=== PATIENT | female | born 1960 | race Two or more races ===

== ENCOUNTER → 2019-12-12 11:37 | Outpatient (BNVA) | payer SELFPAY | DX: Z76.89 Persons encountering health services in other specified circumstances (principal) ==

== ENCOUNTER 2019-12-12 12:44 | Outpatient (REF) | payer OTHER, SELFPAY | END 2019-12-12 12:45 | disposition home or self-care (01) | LOC: HO.LDS 12:44 | PROVIDERS: Visit Provider Physician Assistant Medical | DX: Z20.1 Contact with and (suspected) exposure to tuberculosis (principal) | CPT/HCPCS: 36415; 86481 ==

== ENCOUNTER 2020-01-16 14:04 | Outpatient (REF) | payer OTHER, SELFPAY ==
[2020-01-16 14:49] LABS: Creatinine Urine 151.53 mg/dL; Microalbum/Creatinine Ratio Ur 7.2 ug/mg cr
== END 2020-01-16 14:05 | disposition home or self-care (01) ==
LOC: HO.LNP 14:04
PROVIDERS: Visit Provider Family Medicine
DX: E11.9 Type 2 diabetes mellitus without complications (principal)
CPT/HCPCS: 82043

== ENCOUNTER 2020-03-27 09:25 | Outpatient (REF) | payer OTHER, SELFPAY ==
[2020-03-27 10:54] LABS: Estimated Average Glucose 154 mg/dL
[2020-03-27 11:08] LABS: Alanine Aminotransferase 36 U/L (0-31); Albumin Level 4.7 g/dL (3.5-5.0); Alkaline Phosphatase 81 U/L (39-117); Anion Gap 13 (12-20); Aspartate Amino Transferase 29 U/L (5-31); Bilirubin Total 0.3 mg/dL (0.0-1.0); Blood Urea Nitrogen 15 mg/dL (9-16); Calcium 10.1 mg/dL (8.4-10.2); Carbon Dioxide 27 mmol/L (22-29); Chloride 105 mmol/L (96-108); Cholesterol 166 mg/dL; Estimated Glomerular Filt Rate 48; Glucose Random 88 mg/dL (60-115); HDL Cholesterol 47 mg/dL; LDL Cholesterol Calculated 85 mg/dl; Potassium 4.8 mmol/l (3.3-5.1); Sodium 140 mmol/L (135-145); Total Protein 7.7 g/dL (6.5-8.0); Triglycerides 171 mg/dL
[2020-03-27 11:26] LABS: Creatinine Urine 91.95 mg/dL; Microalbum/Creatinine Ratio Ur 6.5 ug/mg cr
[2020-03-28 21:52] LABS: LDL Cholesterol Direct 89 mg/dL (<100)
== END 2020-03-27 09:26 | disposition home or self-care (01) ==
LOC: HO.LAB 09:25
PROVIDERS: PCP Family Medicine; Visit Provider Internal Medicine
DX: E11.65 Type 2 diabetes mellitus with hyperglycemia (principal); Z79.4 Long term (current) use of insulin
CPT/HCPCS: 36415; 80053; 80061; 82043; 83036; 83721

== ENCOUNTER → 2020-04-08 09:08 | Outpatient (REF) | payer OTHER, SELFPAY ==
--- NOTE | 2020-04-08 09:30 | CA_ITS ---
Transthoracic Echocardiogram Patient (Last, First, Middle): Mami Cook, Gender: Female Date of : 1960 Age: 60 Procedure Date: 04/08/2020 Procedure Type: Transthoracic Echocardiogram Location: OP Height: 160.02 cm Weight: 77.11 kg BSA: 1.80 m2 Heart Rate: bpm BP: 110 / 80 mmHg Principal Solutions Architect: MIREYA Rubi MD: Mike Garcia MD Printing Table Hand: Rick Crawley MD Symptoms: AYSMMETRIC SEPTAL HYPERTROPHY I42.2 R01.1 CARDIAC MURMUR Study Quality: Fair ECG Rhythm: Sinus Conclusions: - 1. Normal LV systolic function with grade 1 diastolic dysfunction with mild asymmetric septal hypertrophy without any clear off flow obstructive physiology 2. Normal cardiac valvular Doppler 3. Normal RV systolic pressure 4. No pericardial effusion Findings Left Ventricle Normal left ventricular size, thickness, and systolic function. The visually estimated ejection fraction is between 55-60%. There is no dynamic left ventricular outflow tract obstruction. Spectral Doppler is indicative of an impaired relaxation filling pattern. E/E prime ratio is <8, consistent with normal filling pressures. Evidence suggests grade I (mild) diastolic dysfunction. There is mild septal asymmetric hypertrophy. Mid ventricular obstructive physiology cannot be entirely ruled out on this study Right Ventricle Normal right ventricular cavity size and systolic function. Atria Both atria are normal in size. Interatrial shunt cannot be excluded. Aortic Valve The aortic valve structure and function is likely normal. There is no aortic valve stenosis. There is no aortic valve regurgitation. Mitral Valve Likely normal mitral valve structure and function. There is trace mitral valve regurgitation. There is no mitral valve stenosis. Pulmonic Valve The pulmonic valve was not well visualized. Tricuspid Valve Likely normal tricuspid valve structure and function. There is trace tricuspid valve regurgitation. The right ventricular systolic pressure is normal. The right ventricular systolic pressure is 15 mmHg. There is no evidence of pulmonary hypertension. Great Vessels All visible segments of the aorta are normal in size. The pulmonary artery was not well visualized. Venous The inferior vena cava is normal in size and collapses greater than 50% with inspiration. Pericardium/Pleural There is no evidence of pericardial effusion. Measurements 2D Linear Measurements IVSd: 1.03 0.6-0.9/0.6-1.0 cm LVIDd: 3.02 3.9-5.3/4.2-5.9 cm LVIDd Index: 1.68 2.4-3.2/2.2-3.1 cm/m2 LVIDs: 2.15 2.0-3.6 cm LVPWd: 0.81 0.7-1.1 cm Ao Root: 2.90 2.1-3.5 cm LA Diam: 2.40 2.7-3.8/3.0-4.0 cm LAIDs Index: 1.33 1.5-2.3 cm/m2 LV Mass: 90.37 67-162/88-224 g LV Mass Index: 50.21 43-95/49-115 g/m2 LVOT Diam: 1.90 3.0+(-)1.3 cm 2D Systolic Function EF 4C: 51.90 >55% EF 2C: 52.80 >55% EF BiP: 53.50 >55% Mitral Valve E'Lateral: 10.00 E'Medial: 8.49 Aortic Valve AoV Pk Haroon: 1.00 AoV Mn Haroon: 0.74 AoV VTI: 0.18 AoV Pk Grad: 4.00 Aov Mn Grad: 2.00 INOCENCIA Cont.VTI: 2.34 LVOT LVOT Pk Haroon: 0.88 LVOT Mn Haroon: 0.63 LVOT VTI: 0.15 LVOT Pk Grad: 3.00 LVOT Mn Grad: 2.00 LVOT Diam: 1.90 LVOT Area: 2.84 Diastolic Function E'Medial: 8.49 E' Laterial: 10.00 Tricuspid Valve TR Pk Haroon: 1.70 TR Pk Grad: 12.00 RA Press: 3.00 RVSP: 15.00 Great Vessels Aorta Ao Root-2D: 2.90 2.0-3.7 cm Ao Asc: 3.40 2.1-3.4 cm Ao Arch: 2.40 Updated in Other Vendor System with Status of Final Rick Crawley MD electronically signed on 04/08/2020 3:26:15 PM with status of Final
== END ==
LOC: HO.CARD 09:08
PROVIDERS: PCP Family Medicine; Visit Provider Internal Medicine
DX: R01.1 Cardiac murmur, unspecified (principal); I42.2 Other hypertrophic cardiomyopathy
CPT/HCPCS: 93306

== ENCOUNTER → 2020-04-09 09:07 | Outpatient (BNVA) | payer OTHER, SELFPAY | PROVIDERS: PCP Family Medicine; Visit Provider Internal Medicine | DX: I42.2 Other hypertrophic cardiomyopathy (principal); E11.8 Type 2 diabetes mellitus with unspecified complications; E78.5 Hyperlipidemia, unspecified | CPT/HCPCS: 93005; 99212 ==

== ENCOUNTER 2020-05-27 12:32 | Outpatient (REF) | payer OTHER, SELFPAY ==
[2020-05-27 14:43] LABS: Alanine Aminotransferase 32 U/L (0-31); Albumin Level 4.7 g/dL (3.5-5.0); Alkaline Phosphatase 86 U/L (39-117); Anion Gap 10 (12-20); Aspartate Amino Transferase 22 U/L (5-31); Bilirubin Total 0.5 mg/dL (0.0-1.0); Blood Urea Nitrogen 17 mg/dL (9-16); Calcium 10.1 mg/dL (8.4-10.2); Carbon Dioxide 30 mmol/L (22-29); Chloride 104 mmol/L (96-108); Cholesterol 178 mg/dL; Estimated Glomerular Filt Rate 51; Glucose Random 172 mg/dL (60-115); HDL Cholesterol 46 mg/dL; LDL Cholesterol Calculated 95 mg/dl; Potassium 5.3 mmol/L (3.3-5.1); Sodium 139 mmol/L (135-145); Total Protein 7.6 g/dL (6.5-8.0); Triglycerides 187 mg/dL
[2020-05-27 14:44] LABS: Creatinine Urine 41.63 mg/dL; Microalbumin Urine < 5.0 mg/L
[2020-05-27 15:06] LABS: Free T4 (Free Thyroxine) 0.79 ng/dL (0.71-1.85); Vitamin D 25-OH Total 39.7 ng/mL (>30)
[2020-05-27 15:27] LABS: Estimated Average Glucose 163 mg/dL; Hemoglobin A1c % 7.3 %
[2020-05-28 11:16] LABS: LDL Cholesterol Direct 95 mg/dL (<100)
== END 2020-05-27 12:33 | disposition home or self-care (01) ==
LOC: HO.LAB 12:32
PROVIDERS: PCP Family Medicine; Visit Provider Internal Medicine
DX: E11.65 Type 2 diabetes mellitus with hyperglycemia (principal); E78.5 Hyperlipidemia, unspecified; I10 Essential (primary) hypertension; E55.9 Vitamin D deficiency, unspecified; Z79.4 Long term (current) use of insulin; Z79.899 Other long term (current) drug therapy
CPT/HCPCS: 36415; 80053; 80061; 82043; 82306; 82947; 83036; 83721; 84439; 84443; 99212

== ENCOUNTER 2020-05-28 10:20 | Outpatient (REF) | payer OTHER, SELFPAY ==
[2020-05-28 11:14] LABS: Alanine Aminotransferase 36 U/L (0-31); Albumin Level 4.7 g/dL (3.5-5.0); Alkaline Phosphatase 86 U/L (39-117); Anion Gap 14 (12-20); Aspartate Amino Transferase 28 U/L (5-31); Bilirubin Total 0.5 mg/dL (0.0-1.0); Blood Urea Nitrogen 16 mg/dL (9-16); Calcium 10.2 mg/dL (8.4-10.2); Carbon Dioxide 26 mmol/L (22-29); Chloride 104 mmol/L (96-108); Estimated Glomerular Filt Rate 46; Glucose Random 154 mg/dL (60-115); Potassium 4.8 mmol/L (3.3-5.1); Sodium 139 mmol/L (135-145); Total Protein 7.7 g/dL (6.5-8.0)
[2020-05-28 11:21] LABS: Estimated Average Glucose 163 mg/dL; Hemoglobin A1c % 7.3 %
[2020-05-28 13:45] LABS: Creatinine Urine 57.19 mg/dL
== END 2020-05-28 10:21 | disposition home or self-care (01) ==
LOC: HO.LAB 10:20
PROVIDERS: PCP Family Medicine; Visit Provider Internal Medicine
DX: E11.65 Type 2 diabetes mellitus with hyperglycemia (principal); Z79.4 Long term (current) use of insulin
CPT/HCPCS: 36415; 80053; 83036

== ENCOUNTER 2020-06-22 09:23 | Outpatient (REF) | payer OTHER, SELFPAY ==
--- NOTE | ~2020-06-22 | MM_ITS ---
EXAMINATION: MM SCREENING DIGITAL BREAST TOMOSYNTHESIS, BILATERAL CLINICAL INFORMATION: Screening. Asymptomatic. The lifetime risk of breast cancer based on the Tyrer-Cuzick Model is 5%. COMPARISON: Mammography: 09/30/2015, 06/21/2014 TECHNIQUE: Digital breast tomosynthesis is performed in both the craniocaudal and mediolateral oblique views along with computer-aided detection (CAD). Synthesized 2D images are generated from the tomosynthesis. FINDINGS: There are scattered areas of fibroglandular density (ACR BI-RADS breast composition Category b). There are no significant masses, abnormal calcifications, or other abnormalities. There are incidental bilateral scattered round and predominantly rim calcifications, greater in number on left. The axilla and skin contours are unremarkable. MM/MM tomosynthesis screening BI IMPRESSION: No mammographic evidence of malignancy. ASSESSMENT: BI-RADS 2: Benign RECOMMENDATION: Routine annual mammography screening. This patient's information was entered into a reminder system with a target due date for their next mammogram.
== END 2020-06-22 09:24 | disposition home or self-care (01) ==
LOC: HO.MAMMO 09:23
PROVIDERS: PCP Family Medicine; Visit Provider Family Medicine
DX: Z12.31 Encounter for screening mammogram for malignant neoplasm of breast (principal)
CPT/HCPCS: 77063; 77067

== ENCOUNTER → 2020-09-02 12:11 | Outpatient (BNVA) | payer OTHER, SELFPAY | PROVIDERS: PCP Family Medicine; Visit Provider Internal Medicine | DX: E11.65 Type 2 diabetes mellitus with hyperglycemia (principal); E78.5 Hyperlipidemia, unspecified; I10 Essential (primary) hypertension; E55.9 Vitamin D deficiency, unspecified; Z79.4 Long term (current) use of insulin | CPT/HCPCS: 82947; 83036; 99212 ==

== ENCOUNTER 2020-12-14 08:47 | Outpatient (REF) | payer OTHER, SELFPAY ==
[2020-12-14 09:46] LABS: Estimated Average Glucose 140 mg/dL; Hemoglobin A1c % 6.5 %
[2020-12-14 09:48] LABS: Alanine Aminotransferase 27 U/L (0-31); Albumin Level 4.3 g/dL (3.5-5.0); Alkaline Phosphatase 100 U/L (39-117); Anion Gap 10 (12-20); Aspartate Amino Transferase 21 U/L (5-31); Bilirubin Total 0.2 mg/dL (0.0-1.0); Blood Urea Nitrogen 11 mg/dL (9-16); Calcium 10.1 mg/dL (8.4-10.2); Carbon Dioxide 30 mmol/L (22-29); Chloride 105 mmol/L (96-108); Estimated Glomerular Filt Rate 57; Glucose Fasting 128 mg/dL (60-99); Potassium 4.4 mmol/L (3.3-5.1); Sodium 141 mmol/L (135-145); Total Protein 7.3 g/dL (6.5-8.0)
== END 2020-12-14 08:48 | disposition home or self-care (01) ==
LOC: HO.LAB 08:47
PROVIDERS: PCP Family Medicine; Visit Provider Family Medicine
DX: Z00.00 Encounter for general adult medical examination without abnormal findings (principal); E11.8 Type 2 diabetes mellitus with unspecified complications
CPT/HCPCS: 36415; 80053; 83036

== ENCOUNTER 2021-01-20 14:42 | Outpatient (REF) | payer OTHER, SELFPAY | END 2021-01-20 14:43 | disposition home or self-care (01) | LOC: HO.LNP 14:42 | PROVIDERS: Visit Provider Hospitalist | DX: Z20.822 Contact with and (suspected) exposure to COVID-19 (principal); J02.9 Acute pharyngitis, unspecified | CPT/HCPCS: U0003; U0005 ==

== ENCOUNTER 2021-03-18 09:46 | Outpatient (REF) | payer OTHER, SELFPAY ==
[2021-03-18 10:05] LABS: MANUAL DIFF FLAG NO
[2021-03-18 10:46] LABS: Basophils Percent Auto 0.6 % (0-2); Eosinophils Absolute Auto 0.1 X10*3/uL (0.0-0.4); Eosinophils Percent Auto 2.3 % (0-4); Hemoglobin 13.2 g/dl (12.0-16.0); Imm Gran Abs Auto 0.01 X10*3/uL (0.00-0.03); Imm Gran Pct Auto 0.2 % (0.0-0.4); Lymphocytes Absolute Auto 2.4 X10*3/uL (1.2-4.9); Lymphocytes Percent Auto 38.8 % (20-40); Mean Corpuscular HGB Conc 32.2 g/dl (31.0-35.0); Mean Corpuscular Hemoglobin 26.7 pg (27.0-33.0); Mean Platelet Volume 11.7 fL (9.4-12.3); Monocytes Absolute Auto 0.3 X10*3/uL (0.1-1.2); Monocytes Percent Auto 5.5 % (2-11); Neutrophils Absolute Auto 3.2 x10*3/uL (2.0-8.3); Neutrophils Percent Auto 52.6 % (45-73); Platelet Count 234 X10*3/uL (160-400); Red Blood Count 4.94 X10*6/uL (4.20-5.50); Red Cell Distribution Width 14.6 % (11.0-16.0); White Blood Count 6.2 X10*3/uL (4.8-10.8)
[2021-03-18 10:57] LABS: Estimated Average Glucose 148 mg/dL; Hemoglobin A1c % 6.8 %
[2021-03-18 11:15] LABS: Anion Gap 11 (12-20); Blood Urea Nitrogen 12 mg/dL (9-16); Calcium 10.2 mg/dL (8.4-10.2); Carbon Dioxide 27 mmol/L (22-29); Chloride 107 mmol/L (96-108); Estimated Glomerular Filt Rate 52; Glucose Fasting 108 mg/dL (60-99); Iron 66 mcg/dL (30-160); Percent Iron Saturation 19 % (15-50); Potassium 4.6 mmol/L (3.3-5.1); Sodium 140 mmol/L (135-145); Total Iron Binding Capacity 350 mcg/dL (228-428); Unsaturated Iron Binding 284 ug/dL
[2021-03-18 11:38] LABS: TSH reflex Free T4 2.02 uIU/mL (0.32-4.0); Vitamin D 25-OH Total 30.4 ng/mL (>30)
[2021-03-18 11:51] LABS: Folate 8.9 ng/mL (> or = 4.0); Vitamin B12 650 pg/mL (200-900)
== END 2021-03-18 09:47 | disposition home or self-care (01) ==
LOC: HO.LAB 09:46
PROVIDERS: PCP Family Medicine; Visit Provider Family Medicine
DX: Z00.00 Encounter for general adult medical examination without abnormal findings (principal); E53.8 Deficiency of other specified B group vitamins; E55.9 Vitamin D deficiency, unspecified; R53.83 Other fatigue; E11.8 Type 2 diabetes mellitus with unspecified complications
CPT/HCPCS: 36415; 80048; 82306; 82607; 82746; 83036; 83540; 84443; 85025

== ENCOUNTER 2021-10-07 07:37 | Outpatient (REF) | payer OTHER, SELFPAY ==
--- NOTE | ~2021-10-07 | MM_ITS ---
EXAMINATION: MM SCREENING DIGITAL BREAST TOMOSYNTHESIS, BILATERAL CLINICAL INFORMATION: Screening. Asymptomatic. The lifetime risk of breast cancer based on the Tyrer-Cuzick Model is 5%. COMPARISON: Mammography: 06/22/2020, 08/18/2015 TECHNIQUE: Digital breast tomosynthesis is performed in both the craniocaudal and mediolateral oblique views along with computer-aided detection (CAD). Synthesized 2D images are generated from the tomosynthesis. FINDINGS: There are scattered areas of fibroglandular density (ACR BI-RADS breast composition Category b). There are no significant masses, abnormal calcifications, or other abnormalities. Parenchymal pattern is similar to prior studies. No developing density or architectural abnormality. MM/MM tomosynthesis screening BI IMPRESSION: No mammographic evidence of malignancy. ASSESSMENT: BI-RADS 1: Negative RECOMMENDATION: Routine annual mammography screening. This patient's information was entered into a reminder system with a target due date for their next mammogram.
== END 2021-10-07 07:38 | disposition home or self-care (01) ==
LOC: HO.MAMMO 07:37
DX: Z12.31 Encounter for screening mammogram for malignant neoplasm of breast (principal)
CPT/HCPCS: 77063; 77067

== ENCOUNTER 2022-07-26 10:14 | Outpatient (REF) | payer OTHER, SELFPAY ==
[2022-07-26 10:32] LABS: MANUAL DIFF FLAG NO
[2022-07-26 11:29] LABS: Basophils Absolute Auto 0.1 X10*3/uL (0.0-0.2); Basophils Percent Auto 0.9 % (0-2); Eosinophils Absolute Auto 0.2 X10*3/uL (0.0-0.4); Eosinophils Percent Auto 2.7 % (0-4); Hematocrit 42.7 % (37.0-47.0); Hemoglobin 13.4 g/dl (12.0-16.0); Imm Gran Abs Auto 0.01 X10*3/uL (0.00-0.03); Imm Gran Pct Auto 0.1 % (0.0-0.4); Lymphocytes Percent Auto 29.3 % (20-40); Mean Corpuscular HGB Conc 31.4 g/dl (31.0-35.0); Mean Corpuscular Hemoglobin 25.9 pg (27.0-33.0); Mean Corpuscular Volume 82.4 fL (80.0-98.0); Mean Platelet Volume 11.7 fL (9.4-12.3); Monocytes Absolute Auto 0.4 X10*3/uL (0.1-1.2); Monocytes Percent Auto 6.1 % (2-11); Neutrophils Absolute Auto 4.2 x10*3/uL (2.0-8.3); Neutrophils Percent Auto 60.9 % (45-73); Platelet Count 234 X10*3/uL (160-400); Red Blood Count 5.18 X10*6/uL (4.20-5.50); Red Cell Distribution Width 15.4 % (11.0-16.0); White Blood Count 6.9 X10*3/uL (4.8-10.8)
[2022-07-26 12:20] LABS: Alanine Aminotransferase 32 U/L (0-31); Albumin Level 4.5 g/dL (3.5-5.0); Alkaline Phosphatase 90 U/L (39-117); Anion Gap 12 (12-20); Aspartate Amino Transferase 24 U/L (5-31); Bilirubin Total 0.5 mg/dL (0.0-1.0); Blood Urea Nitrogen 13 mg/dL (9-16); Calcium 10.6 mg/dL (8.4-10.2); Carbon Dioxide 27 mmol/L (22-29); Chloride 100 mmol/L (96-108); Cholesterol 240 mg/dL; Estimated Glomerular Filt Rate 41; Glucose Random 319 mg/dL (60-115); HDL Cholesterol 51 mg/dL; LDL Cholesterol Calculated 151 mg/dl; Potassium 5.3 mmol/L (3.3-5.1); Sodium 134 mmol/L (135-145); Total Protein 7.5 g/dL (6.5-8.0); Triglycerides 192 mg/dL
[2022-07-26 12:22] LABS: Creatinine Urine 94.07 mg/dL
[2022-07-26 12:28] LABS: TSH reflex Free T4 10.76 uIU/mL (0.32-4.0); Vitamin B12 772 pg/mL (200-900); Vitamin D 25-OH Total 45.1 ng/mL (>30)
[2022-07-26 14:03] LABS: Free T4 (Free Thyroxine) 0.76 ng/dL (0.71-1.85)
== END 2022-07-26 10:15 | disposition home or self-care (01) ==
LOC: HO.LAB 10:14
PROVIDERS: PCP Physician Assistant; Visit Provider Nurse Practitioner Family
DX: Z13.220 Encounter for screening for lipoid disorders (principal); Z13.29 Encounter for screening for other suspected endocrine disorder; Z13.0 Encounter for screening for diseases of the blood and blood-forming organs and certain disorders involving the immune mechanism; Z13.21 Encounter for screening for nutritional disorder; E55.9 Vitamin D deficiency, unspecified; I10 Essential (primary) hypertension
CPT/HCPCS: 36415; 80053; 80061; 82043; 82306; 82607; 82746; 84439; 84443; 85025

== ENCOUNTER → 2022-09-15 09:06 | Outpatient (BNVA) | payer OTHER, SELFPAY | PROVIDERS: PCP Physician Assistant; Visit Provider Dietitian, Registered | DX: E11.65 Type 2 diabetes mellitus with hyperglycemia (principal); Z71.3 Dietary counseling and surveillance | CPT/HCPCS: 97802 ==

== ENCOUNTER 2022-10-27 10:22 | Outpatient (AMB) | payer OTHER, SELFPAY ==
[2022-10-27 10:23] VITALS: BP 130/70; PULSE 82; O2SAT 98; BMI 28.3
--- NOTE | 2022-10-27 10:23 | MHC.PC.OV ---
Vital Signs 10/27/22 10:23 Height 5 ft 3 in Weight 160 lb BMI 28.3 BP 130/70 Blood Pressure Location Lt brachial Position Sitting Pulse 82 Pulse Source Pulse Oximeter Pulse Oximetry (%) 98 Oxygen Delivery Method Room Air Intake Visit Reasons: PE, HTN,DM 2, hypothyroidism Allergies No Known Allergies Allergy (Verified 10/27/22 10:25) Tobacco use date assessed: 07/25/22 Fall risk assessment: No Falls in past year Last assessed Fall Risk: 10/27/22 Dental Screening Dental Screen Date: 10/27/22 Did you have a dental visit in the last 12 months?: Yes Did you have a dental problem in the last 6 months where you did not have access to dental care?: No Was dental information given to patient?: Patient has dentist HPI HPI Comments History of Present Illness Details 62 year-old patient past medical history significant for hyperlipidemia, DM type 2, HTN, GERD, asymmetric septal hypertrophy, acquired hypothyroidism and Depression. Patient presents today for physical exam.Patient states currently follows with psychiatry for her anxiety and depression Dr. Granados on sertraline. Review of the notes patient was seen by diabetic oxygen tank filler back in September. THS 10. in July, levothyroxine increased to 125 mcg that, patient recommended to get previously ordered follow-up blood work completed. Hemoglobin A1c 8.2%, recommended increasing patient's semiglutide. Patient reluctant medication increase this time states she will talk to Endocrinology as she has an upcoming appointment to establish care with to see with the recommend. Patient reports left-sided lower back pain x1 year states takes [id number] Tylenol ibuprofen as well as uses [id number] Lidoderm patches as needed for pain with minimal relief. Patient denies pain radiating down left leg or numbness tingling in lower extremities. Denies any bowel or bladder issues. Mammogram: 10/07/21, scheduled for 10/31/21 Pap smear: referral entered Colonoscopy: [facility], 6 years ago. Normal Eye exam: September 2020 COUNTS INCLUDE 234 BEDS AT THE [facility] Medical History Asymmetric septal hypertrophy HLD (hyperlipidemia) HTN (hypertension) Other and unspecified hyperlipidemia T2DM (type 2 diabetes mellitus) Type 2 diabetes mellitus with unspecified complications Vitamin D deficiency Surgical History H/O shoulder surgery History of surgery on arm History of tubal ligation Family History Mother Diabetes CVD (cardiovascular disease) HTN (hypertension) Brother No problems noted. Brother No problems noted. Brother No problems noted. Sister No problems noted. Sister No problems noted. Sister No problems noted. Daughter No problems noted. Daughter No problems noted. Daughter No problems noted. Daughter No problems noted. Daughter No problems noted. Maternal Aunt Cancer Social History Housing: Apartment Patient Tobacco Use Status: Never used Tobacco e-Cigarette/Vaping Use: Never Used Second Hand Smoke Exposure: No service: No Current occupational status: employed Current occupational exposures/hazards: No Cognitive needs: No Hearing needs: No Vision needs: Yes Questionnaire PHQ-9 Over the last 2 weeks, how often have you been bothered by any of the following problems? 1. Little interest or pleasure in doing things: more than half the days 2. Feeling down, depressed, or hopeless: more than half the days 3. Trouble falling or staying asleep, or sleeping too much: nearly every day 4. Feeling tired or having little energy: more than half the days 5. Poor appetite or overeating: not at all 6. Feeling bad about yourself - or that you are a failure or have let yourself or your family down: not at all 7. Trouble concentrating on things, such as reading the newspaper or watching television: not at all 8. Moving or speaking so slowly that other people could have noticed. Or the opposite - being so fidgety or restless that you have been moving around a lot more than usual: not at all 9. Thoughts that you would be better off or of hurting yourself in some way: not at all Total score: 9 Depression Screening Interpretation: Positive Source: Developed by Drs. Pedrito Mcwilliams, Annalee Servin, Damien Shah and colleagues, with an educational hunter from [email or web address]. Thrive Questionnaire Date Thrive assessed: 03/18/22 AUDIT C Alcohol Use Questionnaire (AUDIT-C) 1. How often do you have a drink containing alcohol?: Never 3. How often do you have six or more drinks on one occasion?: Never Total Score: 0 SHIV-7 AMB Questionnaire SHIV-7 Date SHIV - 7 assessed: 03/18/22 Source: Developed by Drs. Pedrito Mcwilliams, Annalee Servin, Damien Shah and colleagues, with an educational hunter from [email or web address]. Review of Systems Const Denies chills, Denies fatigue, Denies fever(s) and Denies poor appetite Eyes Denies no additional complaints ENT Reports Normal hearing present Card Denies chest pain, Denies syncope, Denies rapid heart rate and Denies dyspnea Resp Denies cough and Denies dyspnea GI Denies change in stool character, Denies constipation, Denies diarrhea, Denies nausea and Denies vomiting Denies urinary frequency, Denies dysuria and Denies urinary urgency Musc Reports back pain (left sided low back pain ) Neuro Reports Normal hearing present, Denies confusion and Denies syncope Psych Denies confusion Endo Denies fatigue Physical exam (Primary Care) Vital Signs: Last Vital Signs Pulse 82 10/27/22 10:23 BP 130/70 10/27/22 10:23 Pulse Ox 98 10/27/22 10:23 Oxygen Delivery Method Room Air 10/27/22 10:23 BMI result Body Mass Index 28.3 Tobacco/Smoking Status: Tobacco use Status Tobacco use date assessed 07/25/22 10/27/22 10:24 Patient Tobacco Use Status Never used Tobacco 10/27/22 10:24 e-Cigarette/Vaping Use Never Used 10/27/22 10:24 PHQ-9: PHQ-9 Score PHQ-9: Total score 9 10/27/22 10:43 Depression Screening Interpretation: Positive Thrive Assessment: Date of Thrive Assessment Date Thrive assessed 03/18/22 10/27/22 10:24 Const General: No confusion Orientation/consciousness: No confusion HENMT Head: Yes normocephalic and Yes atraumatic Ears: external ears normal and TM's normal bilaterally General nose exam: Normal external nose present and Normal nasal mucous membranes and turbinates present Face and sinus: Yes normal facial exam and Yes sinuses nontender Mouth: moist mucous membranes Throat: Yes tonsils normal Eyes Conjunctivae: conjunctivae normal Sclerae: sclerae normal Pupils: Equal, round and reactive pupils present and Pupils normal by confrontation EOM: EOMs intact bilaterally Direct Ophthalmoscopy: normal light reflex Neck Neck: Yes no lymphadenopathy and Yes supple Thyroid: Thyroid normal Chest Chest palpation & inspection: normal inspection of the chest Resp Effort & Inspection: normal respiratory effort Auscultation: clear to auscultation bilaterally, no crackles, no rhonchi and no wheezes Cardio Rate: regular rate Rhythm: regular rhythm Peripheral pulses: radial pulses present and dorsalis pedis present GI Inspection: Yes normal to inspection Palpation (GI): Soft to palpation, nontender and No hepatosplenomegaly present Auscultation: normoactive bowel sounds Back/Spine/Pelvis Thoracic/Lumbar Spine: thoracic and lumbar spine normal to inspection, paraspinal muscle tenderness on the left, No thoracic spinal tenderness, No lumbar spinal tenderness and straight leg raise positive (Pain in left back with left sided leg raise ) Skin General skin exam: no rashes or lesions noted Neuro General: No confusion Cranial nerves: Yes Equal, round and reactive pupils present and Yes Normal hearing present Cognition (Neuro): normal cognition Gait exam (Neuro): Normal gait present Motor exam (neuro): 5/5 motor strength present throughout Deep tendon reflexes (DTR's): Right brachioradialis reflex intensity grade: 2+, Left brachioradialis reflex intensity grade: 2+, Right patellar reflex intensity grade: 2+ and Left patellar reflex intensity grade: 2+ Extrem General: No edema Results AMB Hemoglobin A1c AMB Hemoglobin A1c 8.2 % Last Edit by Lilliana Lozano CMA on 10/27/22 10:44 Results Reviewed Results Reviewed: Laboratory Last Values Hgb A1c (Clinic) 8.2 % (4.0-6.0) H 10/27/22 10:24 Assessment and Plan Assessment & Plan (1) Hypothyroidism (acquired): Code(s): E03.9 - Hypothyroidism, unspecified Plan: Continue on levothyroxine 125 mcg daily. Please get repeat TSH and free T4 completed. Keep scheduled appointment with Endocrinology to establish care. (2) HTN (hypertension): Code(s): I10 - Essential (primary) hypertension Qualifiers: Hypertension type: unspecified Qualified Code(s): I10 - Essential (primary) hypertension Plan: Continue on lisinopril 5 mg daily. Follow low-salt diet and exercise Blood pressure goal less than 140/90 (3) HLD (hyperlipidemia): Code(s): E78.5 - Hyperlipidemia, unspecified Qualifiers: Hyperlipidemia type: unspecified Qualified Code(s): E78.5 - Hyperlipidemia, unspecified Plan: Continue on atorvastatin 80 mg daily. LDL 151, Avoid fried foods, chicken skin, eggs, butter,margarine, pastries and? red meat. LDL goal 100. (4) T2DM (type 2 diabetes mellitus): Code(s): E11.9 - Type 2 diabetes mellitus without complications Qualifiers: Diabetes mellitus complication status: with hyperglycemia Diabetes mellitus shift coordinator insulin use: with shift coordinator use Qualified Code(s): E11.65 - Type 2 diabetes mellitus with hyperglycemia; Z79.4 - analysis engineer (current) use of insulin Plan: Continue on Lantus 10 units q.p.m., semaglutide and metformin a 1000 mg b.i.d.. HGB A1C goal < 7.0% Patient reluctant to change medications at this time, states she would like to speak to [facility] regarding this matter. (5) Physical exam, annual: Code(s): Z00.00 - Encounter for general adult medical examination without abnormal findings Plan: Follow up in 1 year (6) Low back pain: Code(s): M54.50 - Low back pain, unspecified Plan: Patient advise can take [id number] Tylenol and ibuprofen with food as needed for pain. Referral entered to physical therapy. Plan Follow-up in 3 months. Orders: Orders PT Evaluation and Treatment Today M54.50 - Low back pain, unspecified Lipid Panel Today E78.5 - Hyperlipidemia, unspecified AMB Hemoglobin A1c Today Z13.9 - Encounter for screening, unspecified Referrals MAID HOUSEKEEPER Referral Z12.4 - Encounter for screening for malignant neoplasm of cervix Medications: Changed From metformin 1,000 mg PO DAILY 30 days 30 tabs 2RF To metformin 1,000 mg PO BID 30 days 60 tabs 2RF Coding Level of Care Code Est Pt Prev Care 40-64y(46731) Diagnoses Hypothyroidism (acquired) E03.9 HTN (hypertension) I10 Hypertension type: unspecified HLD (hyperlipidemia) E78.5 Hyperlipidemia type: unspecified T2DM (type 2 diabetes mellitus) E11.65; Z79.4 Diabetes mellitus complication status: with hyperglycemia Diabetes mellitus shift coordinator insulin use: with skilled nursing use Physical exam, annual Z00.00 Low back pain M54.50
== END 2022-10-27 10:58 | disposition home or self-care (01) ==
PROVIDERS: PCP Physician Assistant; Visit Provider Nurse Practitioner Family
DX: Z00.00 Encounter for general adult medical examination without abnormal findings (principal); E03.9 Hypothyroidism, unspecified; I10 Essential (primary) hypertension; E11.65 Type 2 diabetes mellitus with hyperglycemia; Z79.4 Long term (current) use of insulin; E78.5 Hyperlipidemia, unspecified; M54.50 Low back pain, unspecified
CPT/HCPCS: 83036; 99396

== ENCOUNTER 2022-10-27 11:03 | Outpatient (REF) | payer OTHER, SELFPAY ==
[2022-10-27 13:19] LABS: Alanine Aminotransferase 38 U/L (0-31); Albumin Level 4.4 g/dL (3.5-5.0); Alkaline Phosphatase 81 U/L (39-117); Anion Gap 10 (12-20); Aspartate Amino Transferase 26 U/L (5-31); Bilirubin Total 0.3 mg/dL (0.0-1.0); Blood Urea Nitrogen 15 mg/dL (9-16); Calcium 10.3 mg/dL (8.4-10.2); Carbon Dioxide 29 mmol/L (22-29); Chloride 106 mmol/L (96-108); Cholesterol 241 mg/dL; Estimated Glomerular Filt Rate 51; Glucose Fasting 225 mg/dL (60-99); Glucose Random 225 mg/dL (60-115); HDL Cholesterol 58 mg/dL; LDL Cholesterol Calculated 143 mg/dl; Sodium 141 mmol/L (135-145); Total Protein 7.8 g/dL (6.5-8.0); Triglycerides 204 mg/dL
[2022-10-27 13:34] LABS: TSH reflex Free T4 3.04 uIU/mL (0.32-4.0)
== END 2022-10-27 11:04 | disposition home or self-care (01) ==
LOC: HO.LAB 11:03
PROVIDERS: PCP Physician Assistant; Visit Provider Nurse Practitioner Family
DX: E03.9 Hypothyroidism, unspecified (principal); E78.5 Hyperlipidemia, unspecified; E87.5 Hyperkalemia
CPT/HCPCS: 36415; 80048; 80053; 80061; 84443

== ENCOUNTER 2022-10-31 09:09 | Outpatient (AMB) | payer OTHER, SELFPAY ==
[2022-10-31 09:14] VITALS: BMI 28.7
--- NOTE | 2022-10-31 09:14 | MHC.AMNUTRGE ---
Intake VS Expanded 10/31/22 09:14 Height 5 ft 3 in Weight 162 lb 0.636 oz BMI 28.7 Intake Visit Reasons: T2DM Allergies No Known Allergies Allergy (Verified 10/27/22 10:25) HPI Nutrition Presentation Details Pt presents for MNT f/u for T2DM Most Recent Diabetes Results: Microalb/Creat Ratio 34.0 ug/mg cr 07/26/22 Cholesterol 241 mg/dL 10/27/22 HDL Cholesterol 58 mg/dL 10/27/22 Triglycerides 204 mg/dL 10/27/22 Creatinine 1.08 mg/dL (0.5-1.4) 10/27/22 Blood Urea Nitrogen 15 mg/dL (9-16) 10/27/22 Sodium 141 mmol/L (135-145) 10/27/22 Potassium 4.0 mmol/L (3.3-5.1) 10/27/22 Chloride 106 mmol/L (96-108) 10/27/22 Carbon Dioxide 29 mmol/L (22-29) 10/27/22 Calcium 10.3 mg/dL (8.4-10.2) H 10/27/22 AST 26 U/L (5-31) 10/27/22 ALT 38 U/L (0-31) H 10/27/22 Total Protein 7.8 g/dL (6.5-8.0) 10/27/22 Albumin 4.4 g/dL (3.5-5.0) 10/27/22 [facility] Medical History Asymmetric septal hypertrophy HLD (hyperlipidemia) HTN (hypertension) Other and unspecified hyperlipidemia T2DM (type 2 diabetes mellitus) Type 2 diabetes mellitus with unspecified complications Vitamin D deficiency Surgical History H/O shoulder surgery History of surgery on arm History of tubal ligation Family History Mother Diabetes CVD (cardiovascular disease) HTN (hypertension) Brother No problems noted. Brother No problems noted. Brother No problems noted. Sister No problems noted. Sister No problems noted. Sister No problems noted. Daughter No problems noted. Daughter No problems noted. Daughter No problems noted. Daughter No problems noted. Daughter No problems noted. Maternal Aunt Cancer Social History Housing: Apartment Patient Tobacco Use Status: Never used Tobacco e-Cigarette/Vaping Use: Never Used Second Hand Smoke Exposure: No service: No Current occupational status: employed Current occupational exposures/hazards: No Cognitive needs: No Hearing needs: No Vision needs: Yes Assessment & Plan Assessment & Plan (1) Type 2 diabetes mellitus with unspecified complications: Code(s): E11.8 - Type 2 diabetes mellitus with unspecified complications Plan: Weight:74 (continues 11/02) Est kcal needs as per MSJ: 1800 (40% carb, 30% protein/fat) Est fluid needs as per 25-30 ml/d: 1850- 2220 Est prot per day as per 1 g/kg bw: 74 Recommend fiber intake : 8-10 g per day and gradually increase to 25-28 g or as tolerated Recommend sodium intake per day : less than 2000 mg Educated patient on: ( R = reviewed V = verbalizes understanding N/R = needs review N/A = not applicable Food sources of carbohydrate, adequate serving sizes and its role in various health conditions: R Differences between complex carbohydrates a simple carbohydrates, role of fiber in diet: R Differences between types of fats and role in diet (mono on saturated fat fatty acids, saturated fatty acids, trans fats): R, basic Food sources of sodium in salt and healthy modifications for heart health in kidney health: R Vitamins and minerals: R Healthy plate method concept: R Physical activity: Benefits a precaution: R Hypoglycemia protocol (rule of 15): NR Dietary prevention of Hyperglycemia: R Patient Instructions: Reduce on snacks, choose low carb/high fiber choices (cucumbers, carrots, broccoli, cauliflower) follow healthy plate method at meal time keep physically active goal 150 min per week as tolerated Coding Level of Care Code Nutr Indiv Subseq ([id number]) Diagnoses Type 2 diabetes mellitus with unspecified complications E11.8 Time Spent (min) 30
== END 2022-10-31 09:42 | disposition home or self-care (01) ==
PROVIDERS: PCP Physician Assistant; Visit Provider Dietitian, Registered
DX: E11.8 Type 2 diabetes mellitus with unspecified complications (principal)

== ENCOUNTER → 2022-10-31 09:09 | Outpatient (BNVA) | payer OTHER, SELFPAY | PROVIDERS: PCP Physician Assistant; Visit Provider Dietitian, Registered | DX: E11.8 Type 2 diabetes mellitus with unspecified complications (principal); Z71.3 Dietary counseling and surveillance | CPT/HCPCS: 97803 ==

== ENCOUNTER 2022-11-23 09:15 | Outpatient (AMB) | payer OTHER, SELFPAY ==
--- NOTE | 2022-11-23 09:16 | A.OFFVIS_ITS ---
Intake Vital Signs 11/23/22 09:17 Height 5 ft 3 in Weight 158 lb 8.198 oz BMI 28.1 BP 132/82 Blood Pressure Location Lt brachial Position Sitting Pulse 82 Pulse Source Pulse Oximeter Intake Visit Reasons: Dm2 and Hypothyroidism/ ohri pt/ LVM Intake Note: New patient to Dr. Blacno present today for T2DM and Hypothyroidism. Previously managed by Dr. Tavarez. Patient receives DME supplies through: Last Diabetic Eye exam: 08/10/22 Last Podiatry Visit: None Random Glucose:184 mg/dl HgA1C: 8.2% 10/27/22 Cardiovascular Physician Assistant Required: No Accompanied by: Self / Same As Patient Allergies No Known Allergies Allergy (Verified 11/23/22 09:26) Medication List - Last Reconciled 11/23/22 by Pedrito Blanco MD atorvastatin 80 mg PO DAILY 90 days blood sugar diagnostic (Hemova MedicalTouch Verio test strips) To test blood sugar 2 times a day As directed, 90 days blood-glucose meter (Hemova MedicalTouch Ultra2 Meter kit) To test blood sugar 2 times a day As directed, 90 days insulin glargine (Lantus Solostar U-100 Insulin) 10 units (0.1 mL) subcut QPM 30 days lancets (OneTouch UltraSoft Lancets) To test blood sugar 2 times a day As directed, 90 days levothyroxine 125 mcg PO DAILY lisinopril 5 mg PO DAILY 90 days metformin 1,000 mg PO BID 30 days omeprazole 20 mg PO DAILY semaglutide 1 mg (0.75 mL) subcut QWEEK sertraline 100 mg PO DAILY HPI HPI Comments History of Present Illness Details 62 YO F with PMHx T2DM, HTN, HLD who is seen in F/U for T2DM. The patient last saw Dr. Tavarez on 09/02/2020 Initially diagnosed with T2DM in 2013 during a routine screening exam. Was initially started on treatment with Metformin. She also tried Glipizide, but she had hypoglycemia with this and it was stopped. Current regimen Metformin 1000 mg PO BID, and Lantus 15 units qHS and Ozempic 1.0 mg once a week. Had GI problems with last dose of Ozempic. Took Trulicity in past Checking sugars 0-1 times daily. Average sugar is 204, with range 138-270. Has had lows in the distant past while on Sulfonylurea. Does have hypoglycemia awareness with dizziness and dry mouth. This occurs with any reading less than 100. She carries glucose tablets with her and treats low sugars with glucose tabs. She does check her sugar after to make sure its increasing. Most recent A1C: 6.9% 09/02/2020, unchanged from 7.0% 03/27/2020. Family history of T2DM in her Mother and all aunts and uncles. Has eyes checked yearly, last eye exam in 06/2022 . Denies neuropathy. No Nephropathy, on Lisinopril 5 mg PO daily. UAC WNL 05/27/2020. Has HLD, on Atorvastatin 80 mg PO daily and Zetia 10 mg PO daily. LDL 95 05/27/2020. Denies a history of CAD. Diet: Does not follow any particular diet. Weight: Stable. Labs: Laboratory Tests 03/27/20 03/27/20 03/27/20 09:45 09:50 09:50 Creatinine 1.15 Estimated GFR 48 Hemoglobin A1c % 7.0 LDL Cholesterol Di rect Microalb/Creat Rat io 6.5 03/27/20 09:50 Creatinine Estimated GFR Hemoglobin A1c % LDL Cholesterol Di rect 89 Microalb/Creat Rat io PFSH Medical History Asymmetric septal hypertrophy HLD (hyperlipidemia) HTN (hypertension) Other and unspecified hyperlipidemia T2DM (type 2 diabetes mellitus) Type 2 diabetes mellitus with unspecified complications Vitamin D deficiency Surgical History History of tubal ligation History of surgery on arm H/O shoulder surgery Family History Mother Diabetes CVD (cardiovascular disease) HTN (hypertension) Brother No problems noted. Brother No problems noted. Brother No problems noted. Sister No problems noted. Sister No problems noted. Sister No problems noted. Daughter No problems noted. Daughter No problems noted. Daughter No problems noted. Daughter No problems noted. Daughter No problems noted. Maternal Aunt Cancer Social History Housing: Apartment Patient Tobacco Use Status: Never used Tobacco e-Cigarette/Vaping Use: Never Used Second Hand Smoke Exposure: No service: No Current occupational status: employed Current occupational exposures/hazards: No Cognitive needs: No Hearing needs: No Vision needs: Yes Physical Exam Vital Signs: Last Vital Signs Pulse 82 11/23/22 09:17 BP 132/82 11/23/22 09:17 BMI result Body Mass Index 28.1 Absence of Cushingoid features. Absence of acromegalic features. Neck exam reveals nl size thyroid about 15 gms. No thyroid nodules palpable. No carotid bruits present. Lungs CTA. Heart S1 S2, Reg R/R. No M/R/ G. Skin exam reveals absence of vitiligo or acanthosis nigricans. Abdominal exam reveals Soft NT/ND with NA BS. No organomegaly present. Neck Other: . Extrem Other: Visual exam of foot performed. No ulcerations or open lesions. No onchomycosis, no callouses.Pulses 2 + distally Sensation intact to monofilament exam. Vibratory sensation sensed is intact with 128 Hz tuning fork Assessment & Plan Assessment & Plan (1) T2DM (type 2 diabetes mellitus): Code(s): E11.9 - Type 2 diabetes mellitus without complications Qualifiers: Diabetes mellitus strings teacher insulin use: with fdc use Diabetes mellitus complication status: with hyperglycemia Qualified Code(s): E11.65 - Type 2 diabetes mellitus with hyperglycemia; Z79.4 - USP (current) use of insulin Plan: Is a 62-year-old female with a history of type 2 diabetes being treated with metformin, Ozempic and basal insulin with poor glycemic control and no known microvascular or macrovascular complications. Plan is to start Mounjaro 2.5 mg and titrate as tolerated. Patient has tried Trulicity and Ozempic and has failed and was intolerant respectively.. Will have patient see photostat operator and fast food sales assistant. Will ask patient to check point care pre and post meals. Will arrange for patient to get Jaskaran 2 we gave her Jaskaran 3 samples Mounjaro 2.5 mg samples given to patient lot number [id number] C expiration 04/14/2024 (2) Hypothyroidism (acquired): Code(s): E03.9 - Hypothyroidism, unspecified Plan: Clinically euthyroid on 125 mcg levothyroxine is experiencing fatigue Will increase levothyroxine 137 mcg and recheck TSH and free T4 in 6 weeks (3) HLD (hyperlipidemia): Code(s): E78.5 - Hyperlipidemia, unspecified Qualifiers: Hyperlipidemia type: unspecified Qualified Code(s): E78.5 - Hyperlipidemia, unspecified Plan: LDL not at goal on maximum doses of atorvastatin and ezetimibe. 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 Will consider adding a PCSK9 inhibitor such as Praulent or Repatha Orders: Orders Free T4 (Free Thyroxine) 6 Weeks E03.9 - Hypothyroidism, unspecified PTHI 6 Weeks E83.52 - Hypercalcemia Thyroid Stimulating Hormone 6 Weeks E03.9 - Hypothyroidism, unspecified Referrals Diabetes Education Referral E11.8 - Type 2 diabetes mellitus with unspecified complications, E11.9 - Type 2 diabetes mellitus without complications Medications: New tirzepatide (Mounjaro) 2.5 mg (0.5 mL) subcut QWEEK 4 weeks 2 mL 0RF levothyroxine 137 mcg PO DAILY 30 tabs 5RF flash glucose sensor (FreeStyle Jaskaran 2 Sensor kit) As directed replace every 14 days 2 ea 4RF flash glucose scanning reader (FreeStyle Jaskaran 2 [place]) As directed 1 ea 0RF Discontinued semaglutide Discontinued Reason: Doctor's Order 1 mg (0.75 mL) subcut QWEEK 3 mL 2RF levothyroxine Discontinued Reason: Doctor's Order 125 mcg PO DAILY 30 tabs 3RF E03.9 - Hypothyroidism, unspecified Coding Level of Care Code Est Pt Level 4 (78434) Diagnoses Type 2 diabetes mellitus with hyperglycemia, with long-term current use of insulin E11.65; Z79.4 Diabetes mellitus fdc insulin use: with fdc use Diabetes mellitus complication status: with hyperglycemia Hypothyroidism (acquired) E03.9 Hyperlipidemia, unspecified hyperlipidemia type E78.5 Hyperlipidemia type: unspecified
[2022-11-23 09:17] VITALS: BP 132/82; PULSE 82; BMI 28.1
[2022-11-23 09:34] LABS: Glucose, Whole Blood 184 mg/dL (60-115)
== END 2022-11-23 10:18 | disposition home or self-care (01) ==
PROVIDERS: PCP Physician Assistant; Visit Provider Internal Medicine Endocrinology, Diabetes & Metabolism
DX: E11.65 Type 2 diabetes mellitus with hyperglycemia (principal); Z79.4 Long term (current) use of insulin; E03.9 Hypothyroidism, unspecified; E78.5 Hyperlipidemia, unspecified
CPT/HCPCS: 99214

== ENCOUNTER → 2022-11-23 09:15 | Outpatient (BNVA) | payer OTHER, SELFPAY | PROVIDERS: Visit Provider Internal Medicine Endocrinology, Diabetes & Metabolism | DX: E11.65 Type 2 diabetes mellitus with hyperglycemia (principal); E03.9 Hypothyroidism, unspecified; E78.5 Hyperlipidemia, unspecified; Z79.4 Long term (current) use of insulin | CPT/HCPCS: 82947; 99212 ==

== ENCOUNTER 2022-12-01 08:00 | Outpatient (RCR) | payer OTHER, SELFPAY | END 2023-01-06 11:37 | disposition home or self-care (01) | LOC: HO.PT 08:00 | PROVIDERS: PCP Physician Assistant; Visit Provider Nurse Practitioner Family | DX: M54.50 Low back pain, unspecified (principal) | CPT/HCPCS: 97110; 97112; 97140; 97161 ==

== ENCOUNTER 2023-06-22 09:02 | Outpatient (REF) | payer OTHER, SELFPAY ==
--- NOTE | ~2023-06-22 | MM_ITS ---
EXAMINATION: MM SCREENING DIGITAL BREAST TOMOSYNTHESIS, BILATERAL CLINICAL INFORMATION: Screening. Asymptomatic. COMPARISON: Mammography: This study is compared with prior exams dating back to 2016. TECHNIQUE: Digital breast tomosynthesis is performed in both the craniocaudal and mediolateral oblique views along with computer-aided detection (CAD). Synthesized 2D images are generated from the tomosynthesis. FINDINGS: There are scattered areas of fibroglandular density (ACR BI-RADS breast composition Category b). There are no significant masses, abnormal calcifications, or other abnormalities. Few, bilateral benign calcifications are present. MM/MM tomosynthesis screening BI IMPRESSION: No mammographic evidence of malignancy. ASSESSMENT: BI-RADS BI-RADS 2 - Benign Findings RECOMMENDATION: Routine annual mammography screening. 1 year F/U This examination should not preclude the clinical evaluation of a suspicious palpable abnormality. This patient's information was entered into a reminder system with a target due date for their next mammogram.
== END 2023-06-22 09:03 | disposition home or self-care (01) ==
LOC: HO.MAMMO 09:02
PROVIDERS: PCP Internal Medicine; Visit Provider Internal Medicine
DX: Z12.31 Encounter for screening mammogram for malignant neoplasm of breast (principal)
CPT/HCPCS: 77063; 77067

== ENCOUNTER → 2023-06-22 09:30 | Outpatient (BNV) | payer OTHER, SELFPAY | PROVIDERS: PCP Internal Medicine; Visit Provider Radiology Diagnostic Radiology | DX: Z12.31 Encounter for screening mammogram for malignant neoplasm of breast (principal) | CPT/HCPCS: 77063; 77067 ==

== ENCOUNTER 2023-06-23 14:03 | Outpatient (AMB) | payer OTHER, SELFPAY ==
[2023-06-23 14:09] VITALS: BP 120/84; PULSE 92; O2SAT 96; BMI 30.1
--- NOTE | 2023-06-23 14:09 | A.OFFPC_ITS ---
Vital Signs 06/23/23 14:09 Height 5 ft 3 in Weight 170 lb 2 oz BMI 30.1 BP 120/84 Blood Pressure Location Lt brachial Position Sitting Pulse 92 Pulse Source Pulse Oximeter Pulse Oximetry (%) 96 Oxygen Delivery Method Room Air Intake Visit Reasons: Transfer care/ labs Intake Note: The patient is here for a transfer of care from [facility]. They are complaining of left hip pain, possibly sciatica, persisting for more than two years and worsening over time. The patient was referred for physical therapy by [facility] and attended three sessions but stopped due to experiencing increased pain afterward. They are requesting an MRI of the hip and an ENT evaluation for left ear ringing persisting for the past six months. Fitness And Wellness Instructor Required: No Accompanied by: Self / Same As Patient Allergies No Known Allergies Allergy (Verified 06/23/23 15:19) Medication List - Last Reconciled 06/23/23 by Dhruv Rodriguez MD atorvastatin 80 mg PO DAILY 90 days blood sugar diagnostic (DokkankomTouch Verio test strips) To test blood sugar 2 times a day As directed, 90 days blood-glucose meter (DokkankomTouch Ultra2 Meter kit) To test blood sugar 2 times a day As directed, 90 days bupropion HCl SR 100 mg PO BID hydroxyzine HCl 25 mg PO BID ibuprofen 800 mg PO Q6-8H insulin glargine (Lantus Solostar U-100 Insulin) 10 units (0.1 mL) subcut QPM 30 days lancets (DokkankomTouch UltraSoft Lancets) To test blood sugar 2 times a day As directed, 90 days levothyroxine 137 mcg PO DAILY lisinopril 5 mg PO DAILY 90 days metformin 1,000 mg PO BID 30 days omeprazole 20 mg PO DAILY sertraline 100 mg PO DAILY Tobacco use date assessed: 06/23/23 Fall risk assessment: No Falls in past year Last assessed Fall Risk: 06/23/23 Dental Screening Dental Screen Date: 06/23/23 Did you have a dental visit in the last 12 months?: Yes Did you have a dental problem in the last 6 months where you did not have access to dental care?: No Was dental information given to patient?: Patient has dentist HPI Transfer care/ labs HPI Details Patient comes in today for her follow up visit - is transferring over from Dr. Montgomery/B[facility] Patient states that she fell a while back and has been experiencing a significant increase in her lower back pain since She has also been experiencing a recurrent ringing in her left ear for a while now and she would like to get a referral to see ENT to have this checked out; she denies any ear pain States that she was prescribed one of the new injectable medications for her cholesterol recently and that made her anxiety worse She would also like to try one of the injectable medications for weight loss as she has been struggling to lose weight for years now without much success States that she feels okay otherwise She denies any headaches or dizziness Denies any chest pains, no shortness of breath No nausea / vomiting, no abdominal pain No change in bowel habits noted Needs several of her Rx [facility]illed [facility] Medical History (Updated 06/26/23 @ 01:36 by Dhruv Rodriguez MD) Obesity (BMI 30-39.9) Depression Anxiety GERD without esophagitis Acquired hypothyroidism Pure hypercholesterolemia Diabetes mellitus Essential hypertension Vitamin D deficiency Type 2 diabetes mellitus with unspecified complications Asymmetric septal hypertrophy Surgical History History of tubal ligation History of surgery on arm H/O shoulder surgery Family History Mother Diabetes CVD (cardiovascular disease) HTN (hypertension) Brother No problems noted. Brother No problems noted. Brother No problems noted. Sister No problems noted. Sister No problems noted. Sister No problems noted. Daughter No problems noted. Daughter No problems noted. Daughter No problems noted. Daughter No problems noted. Daughter No problems noted. Maternal Aunt Cancer Social History Housing: Apartment Patient Tobacco Use Status: Never used Tobacco e-Cigarette/Vaping Use: Never Used Second Hand Smoke Exposure: No service: No Current occupational status: employed Current occupational exposures/hazards: No Cognitive needs: No Hearing needs: No Vision needs: Yes Questionnaire PHQ-9 Over the last 2 weeks, how often have you been bothered by any of the following problems? 1. Little interest or pleasure in doing things: more than half the days 2. Feeling down, depressed, or hopeless: more than half the days 3. Trouble falling or staying asleep, or sleeping too much: nearly every day 4. Feeling tired or having little energy: nearly every day 5. Poor appetite or overeating: nearly every day 6. Feeling bad about yourself - or that you are a failure or have let yourself or your family down: several days 7. Trouble concentrating on things, such as reading the newspaper or watching television: more than half the days 8. Moving or speaking so slowly that other people could have noticed. Or the opposite - being so fidgety or restless that you have been moving around a lot more than usual: not at all 9. Thoughts that you would be better off or of hurting yourself in some way: not at all Total score: 16 Depression Screening Interpretation: Positive Depression Screening Follow-up: Existing condition and In treatment Depression Screening Done: Yes 40387 - PHQ-9 Billing: Yes ( The patient is under the care of psychiatrist Gretel Granados) Source: Developed by Drs. Pedrito Mcwilliams, Annalee Servin, Damien Shah and colleagues, with an educational hunter from [employer]. Thrive Questionnaire Date Thrive assessed: 06/23/23 I am a: Patient What is your living situation today?: I have a steady place to live Within the past 12 months, did the food you bought not last and you didn't have the money to get more?: Never true Within the past 12 months, did you worry whether your food would run out before you got money to buy more?: Never true Do you have trouble paying for medicines?: No Do you have trouble getting transportation to medical appointments?: No Do you have trouble paying your heating and electricity bill?: No Do you have trouble taking care of your child, family member or friend?: No Do you have trouble with day-to-day activities such as bathing, preparing meals, shopping, managing finances, etc.?: No Are you currently unemployed and looking for a job?: No Are you interested in more education?: No Please select the resources that you would like help with: None Currently or been in a relationship where the following occur: no concerns reported THRIVE Score: 0 AUDIT C Alcohol Use Questionnaire (AUDIT-C) 1. How often do you have a drink containing alcohol?: Never 3. How often do you have six or more drinks on one occasion?: Never Total Score: 0 Score Reviewed/Action Taken: Yes SHIV-7 AMB Questionnaire SHIV-7 Date SHIV - 7 assessed: 03/18/22 Feeling nervous, anxious, or on edge: 3 = Nearly every day Not being able to stop or control worryin = Nearly every day Worrying too much about different things: 3 = Nearly every day Trouble relaxin = Nearly every day Being so restless that it is hard to sit still: 3 = Nearly every day Becoming easily annoyed or irritable: 2 = More than half the days Feeling afraid as if something awful might happen: 3 = Nearly every day Total SHIV-7 score (0-4 normal; 5-9 mild; 10-14 moderate; 15-21 severe): 20 Source: Developed by Drs. Pedrito Mcwilliams, Annalee Servin, Damien Shah and colleagues, with an educational hunter from [employer]. SHIV-7 Assessment Billing SHIV-7 Assessment Tool: SHIV-7 Assessment 35255 Review of Systems Const Denies chills, Denies fatigue, Denies fever(s) and Denies headache(s) ENT Denies dysphagia, Denies dizziness, Denies otalgia, Denies headache(s), Denies neck pain, Denies odynophagia, Reports tinnitus (in the left ear) and Denies sore throat Card Denies chest pain, Denies palpitations and Denies dyspnea Resp Denies cough and Denies dyspnea GI Denies abdominal pain, Denies constipation, Denies dysphagia, Denies heartburn, Denies diarrhea, Denies nausea, Denies odynophagia and Denies vomiting Denies difficulty voiding, Denies nocturia, Denies dysuria and Denies urinary urgency Musc Reports back pain (increased, over the lower back) and Denies neck pain Skin/Breast Denies rash Neuro Denies dizziness and Denies headache(s) Psych Reports anxiety, Reports depression and Denies suicidal ideation Endo Denies fatigue and Denies palpitations Physical exam (Primary Care) Vital Signs: Last Vital Signs Pulse 92 06/23/23 14:09 BP 120/84 06/23/23 14:09 Pulse Ox 96 06/23/23 14:09 Oxygen Delivery Method Room Air 06/23/23 14:09 BMI result Body Mass Index 30.1 Tobacco/Smoking Status: Tobacco use Status Tobacco use date assessed 06/23/23 06/23/23 14:44 Patient Tobacco Use Status Never used Tobacco 06/23/23 14:10 e-Cigarette/Vaping Use Never Used 06/23/23 14:10 PHQ-9: PHQ-9 Score PHQ-9: Total score 16 06/23/23 15:21 Depression Screening Interpretation: Positive Depression Screening Follow-up: Existing condition and In treatment Thrive Assessment: Date of Thrive Assessment Date Thrive assessed 06/23/23 06/23/23 14:50 Currently or been in a relationship where the following occur: no concerns reported Const General: no acute distress and alert HENMT Ears: TM's normal bilaterally and EAC's normal Throat: Yes posterior oropharynx normal and Yes tonsils normal (no TP congestion) Neck Neck: Yes no lymphadenopathy and Yes supple Thyroid: Thyroid normal Resp Auscultation: clear to auscultation bilaterally, no rales and no wheezes Cardio Rate: regular rate Rhythm: regular rhythm Heart sounds: no murmurs GI Palpation (GI): Soft to palpation and nontender Auscultation: normal bowel sounds General: Yes no CVA tenderness Back/Spine/Pelvis Back: no CVA tenderness Thoracic/Lumbar Spine: lumbar spinal tenderness Skin Rashes: no rashes Extrem General: Yes no clubbing, cyanosis or edema Results AMB Hemoglobin A1c AMB Hemoglobin A1c 9.2 % Last Edit by XOCHITL Chavez on 06/23/23 14:52 Results Reviewed Results Reviewed: Laboratory Last Values Hgb A1c (Clinic) 9.2 % (4.0-6.0) H 06/23/23 14:51 Assessment and Plan Assessment & Plan (1) Essential hypertension: Code(s): I10 - Essential (primary) hypertension Plan: Reinforced low sodium diet - goal is systolic BP of 120 to 130 mm or less Continue Lisinopril 5 mg QD (2) Diabetes mellitus: Code(s): E11.9 - Type 2 diabetes mellitus without complications Qualifiers: Diabetes mellitus type: type 2 Diabetes mellitus correction insulin use: with terminal gauger use Diabetes mellitus complication status: with hyperglycemia Qualified Code(s): E11.65 - Type 2 diabetes mellitus with hyperglycemia; Z79.4 - intermediate project manager (current) use of insulin Plan: In-office HgbA1c done today is at 9.2% (was at 8.2% when last checked in October 2022) - goal is <7.0% Reinforced diabetic diet Continue Metformin 1000 mg BID; will increase her Lantus from 10 units to 15 units SQ Q HS Will start patient additionally on Ozempic 0.25 mg SQ once a week (3) Pure hypercholesterolemia: Code(s): E78.00 - Pure hypercholesterolemia, unspecified Plan: Reinforced low cholesterol diet Continue Atorvastatin 80 mg QD Will send patient to get her labs done AISHA to follow up on her cholesterol and other issues (4) Acquired hypothyroidism: Code(s): E03.9 - Hypothyroidism, unspecified Plan: Continue Levothyroxine 137 mcg QD Will recheck her TFTs AISHA for follow up (5) Tinnitus, left ear: Code(s): H93.12 - Tinnitus, left ear Plan: Per request, will refer her to ENT for further evaluation and management (6) Low back pain: Code(s): M54.50 - Low back pain, unspecified Qualifiers: Chronicity: unspecified Back pain laterality: midline Sciatica presence: without sciatica Qualified Code(s): M54.50 - Low back pain, unspecified Plan: Reinforced activity and weight-lifting restrictions to avoid aggravating her low back pain Will send her for lumbar spine x-rays for further evaluation (7) GERD without esophagitis: Code(s): K21.9 - Gastro-esophageal reflux disease without esophagitis Plan: Dietary restrictions reinforced Continue Omeprazole 20 mg QD (8) Anxiety: Code(s): F41.9 - Anxiety disorder, unspecified Plan: Continue Hydroxyzine 25 mg BID (9) Depression: Code(s): F32.A - Depression, unspecified Qualifiers: Depression Type: major depressive disorder Major depression recurrence: recurrent Active/Remission status: currently active Major depression episode severity: unspecified Qualified Code(s): F33.9 - Major depressive disorder, recurrent, unspecified Plan: Continue Bupropion SR 100 mg BID and Sertraline 100 mg QD Follow up with psychiatry as scheduled (10) Obesity (BMI 30-39.9): Code(s): E66.9 - Obesity, unspecified Plan: Reinforced diet/exercise as tolerated/lose weight Plan Follow up in 3 months Orders: Orders XR lumbar spine 2-3V 06/23/23 M54.50 - Low back pain, unspecified Complete Blood Count Auto Diff 06/23/23 D64.9 - Anemia, unspecified Comprehensive [place]. Panel Fast 06/23/23 E78.00 - Pure hypercholesterolemia, unspecified Lipid Panel 06/23/23 E78.00 - Pure hypercholesterolemia, unspecified AMB Hemoglobin A1c 06/23/23 E11.8 - Type 2 diabetes mellitus with unspecified complications Free T4 (Free Thyroxine) 06/23/23 E03.9 - Hypothyroidism, unspecified Thyroid Stimulating Hormone 06/23/23 E03.9 - Hypothyroidism, unspecified UA CC w/rflx Micro + Cult 06/23/23 R30.0 - Dysuria Microalbumin, Random (w Creat) 06/23/23 E11.9 - Type 2 diabetes mellitus without complications Hemoglobin A1c 06/23/23 E11.9 - Type 2 diabetes mellitus without complications Vitamin D 25-OH Total 06/23/23 E55.9 - Vitamin D deficiency, unspecified Referrals Ear/Nose/Throat Referral H93.12 - Tinnitus, left ear Medications: New semaglutide (Ozempic) for 4 weeks; then increase to 0.5 mg every week 0.25 mg (0.368 mL) subcut QWEEK 3 mL 3RF Changed From insulin glargine (Lantus Solostar U-100 Insulin) 10 units (0.1 mL) subcut QPM 30 days 3 mL 3RF To insulin glargine (Lantus Solostar U-100 Insulin) 15 units (0.15 mL) subcut QPM 30 days 4.5 mL 3RF From levothyroxine 137 mcg PO DAILY 30 tabs 3RF To levothyroxine 137 mcg PO DAILY 90 days 90 tabs 1RF From metformin 1,000 mg PO BID 30 days 60 tabs 2RF To metformin 1,000 mg PO BID 90 days 180 tabs 1RF Refilled atorvastatin 80 mg PO DAILY 90 days 90 tabs 1RF lisinopril 5 mg PO DAILY 90 days 90 tabs 1RF Coding Level of Care Code Est Pt Level 4 (80229) Diagnoses Essential hypertension I10 Type 2 diabetes mellitus with hyperglycemia, with long-term current use of insulin E11.65; Z79.4 Diabetes mellitus type: type 2 Diabetes mellitus correction insulin use: with terminal gauger use Diabetes mellitus complication status: with hyperglycemia Pure hypercholesterolemia E78.00 Acquired hypothyroidism E03.9 Tinnitus, left ear H93.12 Midline low back pain without sciatica, unspecified chronicity M54.50 Chronicity: unspecified Back pain laterality: midline Sciatica presence: without sciatica GERD without esophagitis K21.9 Anxiety F41.9 Episode of recurrent major depressive disorder, unspecified depression episode severity F33.9 Depression Type: major depressive disorder Major depression recurrence: recurrent Active/Remission status: currently active Major depression episode severity: unspecified Obesity (BMI 30-39.9) E66.9 Additional Codes SHIV-7 Assessment Billing - SHIV-7 Assessment Tool: SHIV-7 Assessment 40009 ([id number])
== END 2023-06-23 15:34 | disposition home or self-care (01) ==
PROVIDERS: PCP Internal Medicine; Visit Provider Internal Medicine
DX: E11.8 Type 2 diabetes mellitus with unspecified complications (principal)
CPT/HCPCS: 83036; 99214

== ENCOUNTER 2023-08-15 08:58 | Outpatient (AMB) | payer OTHER, SELFPAY ==
[2023-08-15 09:14] VITALS: BP 110/72; BMI 28.3
--- NOTE | 2023-08-15 09:14 | MHC.OFFVIS ---
Vital Signs 08/15/23 09:14 Height 5 ft 3 in Weight 160 lb BMI 28.3 BP 110/72 Intake Visit Reasons: New patient Annual Intake Note: no concerns Historic Sites Supervisor Required: No Information Interpreted: non-clinical & clinical Fitness Club Manager: Fitness Club Manager Present (Jessica NAVARRETE) Accompanied by: Self / Same As Patient Allergies No Known Allergies Allergy (Verified 08/15/23 09:18) Post menopausal: Yes HPI Comments Details: Presenting for annual exam. No complaints. Last Pap/HPV was negative in 12/28 Last Mammogram was BI-RADS 2 in 07/04 Last Colonoscopy was in 2017, the recommendation according to the patient was to repeat in 10 years, no records available No previous screening DEXA scan [facility] Medical History Obesity (BMI 30-39.9) Depression Anxiety GERD without esophagitis Acquired hypothyroidism Pure hypercholesterolemia Diabetes mellitus Essential hypertension Vitamin D deficiency Type 2 diabetes mellitus with unspecified complications Asymmetric septal hypertrophy Surgical History History of tubal ligation History of surgery on arm H/O shoulder surgery Family History Mother Diabetes CVD (cardiovascular disease) HTN (hypertension) Brother No problems noted. Brother No problems noted. Brother No problems noted. Sister No problems noted. Sister No problems noted. Sister No problems noted. Daughter No problems noted. Daughter No problems noted. Daughter No problems noted. Daughter No problems noted. Daughter No problems noted. Maternal Aunt Cancer Social History (Updated 08/15/23 @ 09:19 by Jessica Colon CMA) Household Members: None Housing: Apartment Alcohol intake: never Patient Tobacco Use Status: Never used Tobacco e-Cigarette/Vaping Use: Never Used Second Hand Smoke Exposure: No service: No Current occupational status: unemployed Current occupational exposures/hazards: No Sexually active: No Sexual orientation: Straight/Heterosexual Gender identity: Female Cognitive needs: No Hearing needs: No Vision needs: Yes Female Reproductive History Menstrual control method: permanent sterilization Total pregnancies: 5 Full term: 5 Number of Living Children: 5 Date of last pap smear: 12/21/17 Date of Mammogram: 06/22/23 Review of Systems Const All systems reviewed & are unremarkable except as noted in HPI and below Card Reports as per HPI Resp Reports as per HPI GI Reports as per HPI and Reports no additional complaints Reports as per HPI Physical Exam Vital Signs: Last Vital Signs BP 110/72 08/15/23 09:14 BMI result Body Mass Index 28.3 Const General: cooperative, healthy appearing and comfortable Chest Chest palpation & inspection: normal inspection of the chest and normal palpation of entire chest wall Breast/axilla inspection: normal inspection of the breasts and normal inspection of the axillae Breast/axilla palpation: normal palpation of the breasts, normal palpation of the axillae and no axillary lymphadenopathy Resp Effort & Inspection: normal respiratory effort Auscultation: clear to auscultation bilaterally Percussion: percussion normal Cardio Palpation: normal PMI Rate: regular rate Rhythm: regular rhythm Heart sounds: no murmurs and no rubs Peripheral pulses: Peripheral pulses 2+ throughout GI Inspection: Yes normal to inspection Palpation (GI): Soft to palpation, nontender, no guarding, not rigid and No hepatosplenomegaly present Percussion: Yes normal to percussion Auscultation: normal bowel sounds Rectal Exam - Female: deferred General: Yes bladder normal to palpation External Female Exam: No lesion Speculum Exam - Vagina: normal appearance of the vagina, normal palpation, normal vaginal discharge and not erythematous Speculum Exam - Cervix: normal appearance of the cervix and normal palpation Bimanual exam- vagina & uterus: normal bimanual exam, normal palpation, uterine size normal, bladder normal to palpation, consistency normal and normal palpation Bimanual Exam- Adnexa, other: normal adnexae, no masses and no tenderness Assessment & Plan Assessment & Plan (1) Well woman exam: Code(s): Z01.419 - Encounter for gynecological examination (general) (routine) without abnormal findings Category: Medical Plan: Co testing done Counseled the patient about the recommended dietary allowance of 1200 mg of Calcium & 800 IU of vitamin D. Instructions given the patient to schedule next screening Mammogram in 07/05. Will order DEXA scan . The patient was instructed to perform monthly self-breast exams and to schedule a 2 week DEXA scan follow-up appointment and an annual exam in a year; All questions answered and the patient verbalized understanding. Orders: Orders XR DEXA axial skeleton Today Z78.0 - Asymptomatic menopausal state Coding Level of Care Code Est Pt Prev Care >65y(78989) Diagnoses Well woman exam Z01.419
== END 2023-08-15 09:38 | disposition home or self-care (01) ==
LOC: HO.HWS 08:58
PROVIDERS: PCP Internal Medicine; Visit Provider Obstetrics & Gynecology
DX: Z01.419 Encounter for gynecological examination (general) (routine) without abnormal findings (principal)
CPT/HCPCS: 99397

== ENCOUNTER 2023-08-15 08:58 | Outpatient (REF) | payer OTHER, SELFPAY | END 2023-08-15 08:59 | disposition home or self-care (01) | LOC: HO.LNP 08:58 | PROVIDERS: PCP Internal Medicine; Visit Provider Obstetrics & Gynecology | DX: Z01.419 Encounter for gynecological examination (general) (routine) without abnormal findings (principal) | CPT/HCPCS: 88142 ==

== ENCOUNTER 2023-08-15 09:47 | Outpatient (REF) | payer OTHER, SELFPAY ==
--- NOTE | ~2023-08-15 | XR_ITS ---
EXAMINATION: XR lumbar spine 2-3V CLINICAL INFORMATION: Reason for Exam M54.50 - Low back pain, unspecified COMPARISON: None TECHNIQUE: 3 views of the lumbar spine FINDINGS: 5 nonrib-bearing lumbar-type vertebral bodies. Vertebral body heights are maintained. Alignment is maintained. Minimal degenerative change and small anterior disc osteophyte complexes. Disc space heights are maintained. Paravertebral soft tissues are unremarkable. XR/XR lumbar spine 2-3V IMPRESSION: Mild spondylosis of the lumbar spine, as above detailed.
[2023-08-15 09:59] LABS: MANUAL DIFF FLAG NO
[2023-08-15 10:52] LABS: Basophils Percent Auto 0.8 % (0-2); Eosinophils Absolute Auto 0.1 X10*3/uL (0.0-0.4); Eosinophils Percent Auto 1.7 % (0-4); Hematocrit 40.1 % (37.0-47.0); Hemoglobin 13.2 g/dl (12.0-16.0); Imm Gran Abs Auto 0.01 X10*3/uL (0.00-0.03); Imm Gran Pct Auto 0.2 % (0.0-0.4); Lymphocytes Absolute Auto 1.5 X10*3/uL (1.2-4.9); Mean Corpuscular HGB Conc 32.9 g/dl (31.0-35.0); Mean Corpuscular Hemoglobin 27.6 pg (27.0-33.0); Mean Corpuscular Volume 83.7 fL (80.0-98.0); Mean Platelet Volume 11.1 fL (9.4-12.3); Monocytes Absolute Auto 0.3 X10*3/uL (0.1-1.2); Monocytes Percent Auto 5.6 % (2-11); Neutrophils Absolute Auto 3.3 x10*3/uL (2.0-8.3); Neutrophils Percent Auto 63.7 % (45-73); Platelet Count 264 X10*3/uL (160-400); Red Blood Count 4.79 X10*6/uL (4.20-5.50); Red Cell Distribution Width 14.6 % (11.0-16.0); White Blood Count 5.2 X10*3/uL (4.8-10.8)
[2023-08-15 11:09] LABS: Estimated Average Glucose 174 mg/dL; Hemoglobin A1c % 7.7 % (<6.0)
[2023-08-15 11:21] LABS: Appearance Urine Clear; Color Urine Yellow; Glucose Urine UA Negative (Negative); Leukocyte Esterase Urine Negative (Negative); Nitrite Urine Negative (Negative); Specific Gravity - Urine 1.015 (1.005-1.025); UMIC TRIGGER UACC YES; Urine Blood Trace (Negative); Urine Ketones Negative (Negative); Urine Protein Negative (Neg-Trace)
[2023-08-15 11:26] LABS: Bacteria Urine None Seen (None Seen); Squamous Epithelial Cell Urine 0-2 /HPF (0-2); WBC Urine 0-5 /HPF (0-5)
[2023-08-15 11:48] LABS: Alanine Aminotransferase 64 U/L (0-31); Albumin Level 4.4 g/dL (3.5-5.0); Alkaline Phosphatase 68 U/L (39-117); Anion Gap 13 (12-20); Aspartate Amino Transferase 42 U/L (5-31); Bilirubin Total 0.3 mg/dL (0.0-1.0); Blood Urea Nitrogen 13 mg/dL (9-16); Calcium 10.3 mg/dL (8.4-10.2); Carbon Dioxide 26 mmol/L (22-29); Chloride 105 mmol/L (96-108); Cholesterol 200 mg/dL (<200); Estimated Glomerular Filt Rate 49; Glucose Fasting 158 mg/dL (60-99); HDL Cholesterol 60 mg/dL (>40); LDL Cholesterol Calculated 89 mg/dL (<100); Potassium 4.2 mmol/L (3.3-5.1); Sodium 140 mmol/L (135-145); Total Protein 7.6 g/dL (6.5-8.0); Triglycerides 259 mg/dL (<150)
[2023-08-15 11:59] LABS: Creatinine Urine 82.43 mg/dL
[2023-08-15 12:11] LABS: Thyroid Stimulating Hormone 11.24 uIU/mL (0.32-4.0); Vitamin D 25-OH Total 51.1 ng/mL (>30)
[2023-08-25 00:39] LABS: HPV mRNA E6/E7 rflx Not Detected (Not Detected)
== END 2023-08-15 09:48 | disposition home or self-care (01) ==
LOC: HO.LAB 09:47
PROVIDERS: PCP Internal Medicine; Visit Provider Internal Medicine
DX: M47.816 Spondylosis without myelopathy or radiculopathy, lumbar region (principal); D64.9 Anemia, unspecified; E78.00 Pure hypercholesterolemia, unspecified; E03.9 Hypothyroidism, unspecified; E11.9 Type 2 diabetes mellitus without complications; E55.9 Vitamin D deficiency, unspecified; R30.0 Dysuria
CPT/HCPCS: 36415; 72100; 80053; 80061; 81001; 82043; 82306; 82570; 83036; 84439; 84443; 85025; 87624

== ENCOUNTER 2023-09-07 09:45 | Outpatient (REF) | payer OTHER, SELFPAY ==
--- NOTE | ~2023-09-07 | MM_ITS ---
EXAMINATION: BONE DENSITOMETRY CLINICAL INDICATION: Menopause. COMPARISON: This is the patient's baseline examination. TECHNIQUE: Using a [employer] DXA System (software version: 13.1) manufactured by [employer], dual-energy x-ray absorptiometry was performed of the lumbar spine and left hip. The images are of good technical quality. Summary results are attached. FINDINGS: LEFT FEMUR, NECK: BMD 0.798 g/cm2, Z-score -0.5, T-score -1.7, osteopenia. LEFT FEMUR, TOTAL: BMD 0.939 g/cm2, Z-score 0.4, T-score -0.5, normal. AP SPINE L1-L3 (excluding L4): The data of L1-L4 has been changed to exclude the L4 vertebral body, because degenerative sclerosis at this level may cause overestimation of lumbar spine density. BMD 1.205 g/cm2, Z-score 1.5, T-score 0.3, normal. IDENTIFIED RISK FACTORS: Menopause, secondary osteoporosis. HISTORY OF FRACTURE: None listed. MEDICATIONS: Calcium, vitamin D. MM/XR DEXA axial skeleton IMPRESSION: 1. DIAGNOSIS: Osteopenia based on the lowest T-score value of -1.7 in the femoral neck applying World Health Organization criteria. 2. 10-YEAR FRACTURE RISK PREDICTION, FRAX: Major osteoporotic fracture (clinical spine, forearm, hip or shoulder) 5.3%. Hip fracture 0.7%. 3. Treatment Recommendations: NOF guidelines recommend consideration for treatment in postmenopausal women and men age 50 and older presenting with the following: -A hip or vertebral (clinical or morphometric) fracture. -T-score less than or equal to -2.5 at the femoral neck or spine after appropriate evaluation to exclude secondary causes. -Low bone mass at the hip or spine and a 10-year fracture probability by FRAX of greater than or equal to 3% for hip fracture or greater than or equal to 20% for major osteoporotic fracture based on the [place] adapted WHO algorithm. 4. Other Recommendations: All treatment decisions require clinical judgment and consideration of individual patient factors, including patient preferences, comorbidities, previous drug use, risk factors not captured in the FRAX model (e.g. frailty, falls, vitamin D deficiency, increased bone turnover, interval significant decline in bone density) and possible under or overestimation of fracture risk by FRAX. Additional medical evaluation for secondary cause of low bone mineral density may be appropriate. FUTURE SCAN RECOMMENDATION: People with diagnosed cases of osteoporosis or at high risk for fracture should have regular bone mineral density tests. For patients eligible for Medicare, routine testing is allowed once every 2 years. The testing frequency can be increased to one year for patients who have rapidly progressing disease, those who are receiving or discontinuing medical therapy to restore bone mass, or have additional risk factors.
== END 2023-09-07 09:46 | disposition home or self-care (01) ==
LOC: HO.MAMMO 09:45
PROVIDERS: PCP Internal Medicine; Visit Provider Obstetrics & Gynecology
DX: Z13.820 Encounter for screening for osteoporosis (principal); Z78.0 Asymptomatic menopausal state
CPT/HCPCS: 77080

== ENCOUNTER 2023-09-27 14:38 | Outpatient (AMB) | payer OTHER, SELFPAY ==
--- NOTE | 2023-09-27 15:24 | MHC.OFFVIS ---
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 T score @ spine and femoral Neck respectively were=-0.5 /-1.7 and 10 year FRAX risk = 5.3/0.7 % for severe osteoporosis and fracture. [facility] Medical History Obesity (BMI 30-39.9) Depression Anxiety GERD without esophagitis Acquired hypothyroidism Pure hypercholesterolemia Diabetes mellitus Essential hypertension Vitamin D deficiency Type 2 diabetes mellitus with unspecified complications Asymmetric septal hypertrophy Surgical History History of tubal ligation History of surgery on arm H/O shoulder surgery Family History Mother Diabetes CVD (cardiovascular disease) HTN (hypertension) Brother No problems noted. Brother No problems noted. Brother No problems noted. Sister No problems noted. Sister No problems noted. Sister No problems noted. Daughter No problems noted. Daughter No problems noted. Daughter No problems noted. Daughter No problems noted. Daughter No problems noted. Maternal Aunt Cancer Social History Household Members: None Housing: Apartment Alcohol intake: never Patient Tobacco Use Status: Never used Tobacco e-Cigarette/Vaping Use: Never Used Second Hand Smoke Exposure: No service: No Current occupational status: unemployed Current occupational exposures/hazards: No Sexual orientation: Straight/Heterosexual Gender identity: Female Cognitive needs: No Hearing needs: No Vision needs: Yes Review of Systems Const All systems reviewed & are unremarkable except as noted in HPI and below Reports as per HPI and Reports no additional complaints GI Reports no additional complaints Reports no additional complaints Physical Exam Vital Signs: BMI result Body Mass Index 28.1 Assessment & Plan Assessment & Plan (1) Osteopenia: Code(s): M85.80 - Other specified disorders of bone density and structure, unspecified site Category: Medical Plan: Discussed with the patient the DEXA results and FRAX risk. FRAX risk and T score showed no evidence of osteoporosis. Discussed with the patient all the options for osteoporosis prevention including lifestyle modifications including Ca+D supplements 1200 mg po qd/800 MIU, Weight bearing exercises and proteine supplements. The patient verbalized understanding and agreed plan will repeat DEXA in 2 years. Coding Level of Care Code Est Pt Level 3 (07473) Diagnoses Osteopenia M85.80
[2023-09-27 15:30] VITALS: BMI 28.1
== END 2023-09-28 09:31 | disposition home or self-care (01) ==
LOC: HO.HWS 14:38
PROVIDERS: PCP Internal Medicine; Visit Provider Obstetrics & Gynecology
DX: M85.80 Other specified disorders of bone density and structure, unspecified site (principal)
CPT/HCPCS: 99213

== ENCOUNTER → 2023-09-27 14:38 | Outpatient (BNVA) | payer OTHER, SELFPAY | PROVIDERS: PCP Internal Medicine; Visit Provider Obstetrics & Gynecology | DX: M85.80 Other specified disorders of bone density and structure, unspecified site (principal) | CPT/HCPCS: 99212 ==

== ENCOUNTER 2023-10-04 10:00 | Outpatient (AMB) | payer OTHER, SELFPAY ==
--- NOTE | 2023-10-04 10:02 | MHC.PC.OV ---
Vital Signs 10/04/23 10:03 Height 5 ft 3 in Weight 161 lb BMI 28.5 BP 110/70 Blood Pressure Location Lt brachial Position Sitting Pulse 60 Pulse Source Pulse Oximeter Pulse Oximetry (%) 99 Oxygen Delivery Method Room Air Intake Visit Reasons: DM, hyperlipidemia, hypothyroidism Operations Professional: Not Required per policy Accompanied by: Self / Same As Patient Allergies No Known Allergies Allergy (Verified 10/04/23 11:07) Medication List - Last Reconciled 10/04/23 by Dhruv Rodriguez MD atorvastatin 80 mg PO DAILY 90 days blood sugar diagnostic ([employer] Verio test strips) To test blood sugar 2 times a day As directed, 90 days blood-glucose meter ([employer] Ultra2 Meter kit) To test blood sugar 2 times a day As directed, 90 days bupropion HCl SR 100 mg PO BID hydroxyzine HCl 25 mg PO BID ibuprofen 800 mg PO Q6-8H insulin glargine (Lantus Solostar U-100 Insulin) 15 units (0.15 mL) subcut QPM 30 days lancets ([employer] UltraSoft Lancets) To test blood sugar 2 times a day As directed, 90 days levothyroxine 137 mcg PO DAILY 90 days lisinopril 5 mg PO DAILY 90 days metformin 1,000 mg PO BID 90 days omeprazole 20 mg PO DAILY semaglutide (Ozempic) 0.25 mg (0.368 mL) subcut QWEEK sertraline 100 mg PO DAILY Tobacco use date assessed: 06/23/23 Fall risk assessment: No Falls in past year Last assessed Fall Risk: 10/04/23 Dental Screening Dental Screen Date: 06/23/23 HPI DM, hyperlipidemia, hypothyroidism HPI Details Patient comes in today for her follow up visit States that she feels okay except for increased pain over her lower back lately She denies any recent injury or trauma to her lower back She denies any headaches or dizziness Denies any chest pains, no shortness of breath No nausea / vomiting, no abdominal pain No change in bowel habits noted She appears to be tolerating Ozempic without any problems so far - notes that she has lost about 10 pounds since she started using Ozempic for her diabetes She had her follow up labs done last month - to discuss her results [facility] Medical History (Updated 10/08/23 @ 23:30 by Dhruv Rodriguez MD) Overweight (BMI 25.0-29.9) Obesity (BMI 30-39.9) Depression Anxiety GERD without esophagitis Acquired hypothyroidism Pure hypercholesterolemia Diabetes mellitus Essential hypertension Vitamin D deficiency Type 2 diabetes mellitus with unspecified complications Asymmetric septal hypertrophy Surgical History History of tubal ligation History of surgery on arm H/O shoulder surgery Family History Mother Diabetes CVD (cardiovascular disease) HTN (hypertension) Brother No problems noted. Brother No problems noted. Brother No problems noted. Sister No problems noted. Sister No problems noted. Sister No problems noted. Daughter No problems noted. Daughter No problems noted. Daughter No problems noted. Daughter No problems noted. Daughter No problems noted. Maternal Aunt Cancer Social History Household Members: None Housing: Apartment Alcohol intake: never Patient Tobacco Use Status: Never used Tobacco e-Cigarette/Vaping Use: Never Used Second Hand Smoke Exposure: No service: No Current occupational status: unemployed Current occupational exposures/hazards: No Sexual orientation: Straight/Heterosexual Gender identity: Female Cognitive needs: No Hearing needs: No Vision needs: Yes Questionnaire Thrive Questionnaire Date Thrive assessed: 06/23/23 SHIV-7 AMB Questionnaire SHIV-7 Date SHIV - 7 assessed: 03/18/22 Source: Developed by Drs. Pedrito Mcwilliams, Annalee Servin, Damien Shah and colleagues, with an educational hunter from [employer]. Review of Systems Const Denies chills, Denies fatigue, Denies fever(s) and Denies headache(s) ENT Denies dysphagia, Denies dizziness, Denies otalgia, Denies headache(s), Denies neck pain, Denies odynophagia, Reports tinnitus (in the left ear) and Denies sore throat Card Denies chest pain, Denies palpitations and Denies dyspnea Resp Denies cough and Denies dyspnea GI Denies abdominal pain, Denies constipation, Denies dysphagia, Denies heartburn, Denies diarrhea, Denies nausea, Denies odynophagia and Denies vomiting Denies difficulty voiding, Denies nocturia, Denies dysuria and Denies urinary urgency Musc Reports back pain (increased, over the lower back) and Denies neck pain Skin/Breast Denies rash Neuro Denies dizziness and Denies headache(s) Psych Reports anxiety and Reports depression Endo Denies fatigue and Denies palpitations Physical exam (Primary Care) Vital Signs: Last Vital Signs Pulse 60 10/04/23 10:03 BP 110/70 10/04/23 10:03 Pulse Ox 99 10/04/23 10:03 Oxygen Delivery Method Room Air 10/04/23 10:03 BMI result Body Mass Index 28.5 Tobacco/Smoking Status: Tobacco use Status Tobacco use date assessed 06/23/23 10/04/23 10:04 Patient Tobacco Use Status Never used Tobacco 10/04/23 10:04 e-Cigarette/Vaping Use Never Used 10/04/23 10:04 Thrive Assessment: Date of Thrive Assessment Date Thrive assessed 06/23/23 10/04/23 10:04 Const General: no acute distress and alert HENMT Ears: TM's normal bilaterally and EAC's normal Throat: Yes posterior oropharynx normal and Yes tonsils normal (no TP congestion) Neck Neck: Yes no lymphadenopathy and Yes supple Thyroid: Thyroid normal Resp Auscultation: clear to auscultation bilaterally, no rales and no wheezes Cardio Rate: regular rate Rhythm: regular rhythm Heart sounds: no murmurs GI Palpation (GI): Soft to palpation and nontender Auscultation: normal bowel sounds General: Yes no CVA tenderness Back/Spine/Pelvis Back: no CVA tenderness Thoracic/Lumbar Spine: lumbar spinal tenderness Skin Rashes: no rashes Extrem General: Yes no clubbing, cyanosis or edema Results Reviewed Results Reviewed: Laboratory Tests 08/15/23 09:58 WBC 5.2 Hgb 13.2 Hct 40.1 Plt Count 264 Sodium 140 Potassium 4.2 Creatinine 1.11 Estimated GFR 49 Fasting Glucose 158 H Hemoglobin A1c % 7.7 H Calcium 10.3 H AST 42 H ALT 64 H Triglycerides 259 H Cholesterol 200 H LDL Cholesterol, Calc 89 HDL Cholesterol 60 25-OH Vitamin D Total 51.1 Assessment and Plan Assessment & Plan (1) Lumbar spondylosis: Code(s): M47.816 - Spondylosis without myelopathy or radiculopathy, lumbar region Plan: Her lumbar spine x-rays done last month revealed (+) mild spondylosis of the lumbar spine Reinforced activity and weight-lifting restrictions Will refer her to physical therapy for further evaluation and management (2) Essential hypertension: Code(s): I10 - Essential (primary) hypertension Plan: Reinforced low sodium diet - goal is systolic BP of 120 to 130 mm or less Continue Lisinopril 5 mg QD (3) Diabetes mellitus: Code(s): E11.9 - Type 2 diabetes mellitus without complications Qualifiers: Diabetes mellitus complication status: with hyperglycemia Diabetes mellitus chcf insulin use: with chcf use Diabetes mellitus type: type 2 Qualified Code(s): E11.65 - Type 2 diabetes mellitus with hyperglycemia; Z79.4 - oil 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) use of insulin Plan: Her HgbA1c was at 7.7% on her labs done last month (August 2023); her in-office HgbA1c was at 9.2% a few months ago) - goal is <7.0% Reinforced diabetic diet Continue Metformin 1000 mg BID, Lantus from 15 units SQ Q HS and Ozempic 0.25 mg SQ once a week (4) Pure hypercholesterolemia: Code(s): E78.00 - Pure hypercholesterolemia, unspecified Plan: Results of her labs done last month reviewed and discussed with patient Reinforced low cholesterol diet Continue Atorvastatin 80 mg QD Will recheck her labs and fasting lipids in 3 months for follow up (5) Acquired hypothyroidism: Code(s): E03.9 - Hypothyroidism, unspecified Plan: Her TSH level was significantly elevated (>11) on her labs done last month Will increase her Levothyroxine from 137 mcg to 150 mcg QD Will recheck her TFTs in a few months for follow up (6) Osteopenia: Code(s): M85.80 - Other specified disorders of bone density and structure, unspecified site Qualifiers: Osteopenia location: spine Qualified Code(s): M85.88 - Other specified disorders of bone density and structure, other site Plan: Her baseline BMD done in August 2023 revealed (+) osteopenia based on the lowest T-score value of -1.7 in the femoral neck Will start patient on Calcium + Vitamin D3 supplements daily Patient is advised to exercise regularly to help maintain her BMD Will recheck her BMD in 2 to 3 years for follow up (7) Tinnitus, left ear: Code(s): H93.12 - Tinnitus, left ear Plan: Per request, we previously referred her to ENT for further evaluation and management - she is presently still awaiting appointment (8) GERD without esophagitis: Code(s): K21.9 - Gastro-esophageal reflux disease without esophagitis Plan: Dietary restrictions reinforced Continue Omeprazole 20 mg QD (9) Anxiety: Code(s): F41.9 - Anxiety disorder, unspecified Plan: Continue Hydroxyzine 25 mg BID (10) Depression: Code(s): F32.A - Depression, unspecified Qualifiers: Active/Remission status: currently active Depression Type: major depressive disorder Major depression episode severity: unspecified Major depression recurrence: recurrent Qualified Code(s): F33.9 - Major depressive disorder, recurrent, unspecified Plan: Continue Bupropion SR 100 mg BID and Sertraline 100 mg QD Follow up with psychiatry as scheduled (11) Overweight (BMI 25.0-29.9): Code(s): E66.3 - Overweight Plan: Reinforced diet/exercise as tolerated/lose weight - she has been able to lose about 10 pounds since her last month Plan Follow up in 3 months Orders: Orders Thyroid Stimulating Hormone 3 Months E03.9 - Hypothyroidism, unspecified Complete Blood Count Auto Diff 3 Months D64.9 - Anemia, unspecified Comprehensive Downs. Panel Fast 3 Months E78.00 - Pure hypercholesterolemia, unspecified PT Evaluation and Treatment 07/24 M47.816 - Spondylosis without myelopathy or radiculopathy, lumbar region, M54.50 - Low back pain, unspecified Hemoglobin A1c 3 Months E11.9 - Type 2 diabetes mellitus without complications Lipid Panel 3 Months E78.00 - Pure hypercholesterolemia, unspecified Free T4 (Free Thyroxine) 3 Months E03.9 - Hypothyroidism, unspecified Medications: New calcium carbonate-vitamin D3 600 mg-25 mcg (1,000 unit) 1 cap PO DAILY 90 days 90 caps 3RF Changed From levothyroxine 137 mcg PO DAILY 90 days 90 tabs 1RF To levothyroxine 150 mcg PO DAILY 90 days 90 tabs 1RF Coding Level of Care Code Est Pt Level 4 (49315) Complex EM visit Add On G2211 Diagnoses Lumbar spondylosis M47.816 Essential hypertension I10 Type 2 diabetes mellitus with hyperglycemia, with long-term current use of insulin E11.65; Z79.4 Diabetes mellitus complication status: with hyperglycemia Diabetes mellitus chcf insulin use: with chcf use Diabetes mellitus type: type 2 Pure hypercholesterolemia E78.00 Acquired hypothyroidism E03.9 Osteopenia of spine M85.88 Osteopenia location: spine Tinnitus, left ear H93.12 GERD without esophagitis K21.9 Anxiety F41.9 Episode of recurrent major depressive disorder, unspecified depression episode severity F33.9 Active/Remission status: currently active Depression Type: major depressive disorder Major depression episode severity: unspecified Major depression recurrence: recurrent Overweight (BMI 25.0-29.9) E66.3
[2023-10-04 10:03] VITALS: BP 110/70; PULSE 60; O2SAT 99; BMI 28.5
== END 2023-10-04 11:15 | disposition home or self-care (01) ==
PROVIDERS: PCP Internal Medicine; Visit Provider Internal Medicine
DX: M47.816 Spondylosis without myelopathy or radiculopathy, lumbar region (principal); I10 Essential (primary) hypertension; E11.65 Type 2 diabetes mellitus with hyperglycemia; Z79.4 Long term (current) use of insulin; E78.00 Pure hypercholesterolemia, unspecified; E03.9 Hypothyroidism, unspecified; M85.88 Other specified disorders of bone density and structure, other site; H93.12 Tinnitus, left ear; K21.9 Gastro-esophageal reflux disease without esophagitis; F41.9 Anxiety disorder, unspecified; E66.3 Overweight
CPT/HCPCS: 99214; G2211

== ENCOUNTER 2024-01-09 15:09 | Outpatient (AMB) | payer MEDICARE, MEDICAID, SELFPAY ==
[2024-01-09 15:17] VITALS: BP 112/80; PULSE 76; O2SAT 98; BMI 28.7
--- NOTE | 2024-01-09 15:17 | MHC.PC.OV ---
Vital Signs 01/09/24 15:17 Height 5 ft 3 in Weight 162 lb BMI 28.7 BP 112/80 Blood Pressure Location Lt brachial Position Sitting Pulse 76 Pulse Source Pulse Oximeter Pulse Oximetry (%) 98 Oxygen Delivery Method Room Air Intake Visit Reasons: [id number] Allergies No Known Allergies Allergy (Verified 01/09/24 15:47) Medication List - Last Reconciled 01/09/24 by Dhruv Rodriguez MD atorvastatin 80 mg PO DAILY 90 days blood sugar diagnostic ([employer] Verio test strips) To test blood sugar 2 times a day As directed, 90 days blood-glucose meter ([employer] Ultra2 Meter kit) To test blood sugar 2 times a day As directed, 90 days bupropion HCl SR 100 mg PO BID calcium carbonate-vitamin D3 600 mg-25 mcg (1,000 unit) 1 cap PO DAILY 90 days hydroxyzine HCl 25 mg PO BID ibuprofen 800 mg PO Q6-8H insulin glargine (Lantus Solostar U-100 Insulin) 15 units (0.15 mL) subcut QPM 30 days lancets ([employer] UltraSoft Lancets) To test blood sugar 2 times a day As directed, 90 days levothyroxine 150 mcg PO DAILY 90 days lisinopril 5 mg PO DAILY 90 days metformin 1,000 mg PO BID 90 days omeprazole 20 mg PO DAILY semaglutide (Ozempic) 0.25 mg (0.368 mL) subcut QWEEK sertraline 100 mg PO DAILY Tobacco use date assessed: 06/23/23 Fall risk assessment: No Falls in past year Last assessed Fall Risk: 01/09/24 Dental Screening Dental Screen Date: 06/23/23 HPI [id number] HPI Details Patient comes in today for her follow up visit States that she's had a tough time over the past few months and was not able to get her follow up labs done yet Will try to get them done tomorrow or as soon as she can She was reportedly seen by her dentist and was advised that they will need to pull out all of her upper teeth, which she had done, and she has been feeling very depressed about this lately She is now just waiting for her dental implants States that she has also been dealing with some family issues lately, which is adding to her stress She denies any headaches or dizziness Denies any chest pains, no increased SOB No nausea/vomiting, no abdominal pain No change in bowel habits noted Needs her Omeprazole Rx refilled today [facility] Medical History Overweight (BMI 25.0-29.9) Obesity (BMI 30-39.9) Depression Anxiety GERD without esophagitis Acquired hypothyroidism Pure hypercholesterolemia Diabetes mellitus Essential hypertension Vitamin D deficiency Type 2 diabetes mellitus with unspecified complications Asymmetric septal hypertrophy Surgical History History of tubal ligation History of surgery on arm H/O shoulder surgery Family History Mother Diabetes CVD (cardiovascular disease) HTN (hypertension) Brother No problems noted. Brother No problems noted. Brother No problems noted. Sister No problems noted. Sister No problems noted. Sister No problems noted. Daughter No problems noted. Daughter No problems noted. Daughter No problems noted. Daughter No problems noted. Daughter No problems noted. Maternal Aunt Cancer Social History Household Members: None Housing: Apartment Alcohol intake: never Patient Tobacco Use Status: Never used Tobacco e-Cigarette/Vaping Use: Never Used Second Hand Smoke Exposure: No service: No Current occupational status: unemployed Current occupational exposures/hazards: No Sexual orientation: Straight/Heterosexual Gender identity: Female Cognitive needs: No Hearing needs: No Vision needs: Yes Questionnaire Thrive Questionnaire Date Thrive assessed: 06/23/23 AUDIT C Alcohol Use Questionnaire (AUDIT-C) 1. How often do you have a drink containing alcohol?: Never 3. How often do you have six or more drinks on one occasion?: Never Total Score: 0 Score Reviewed/Action Taken: Yes SHIV-7 AMB Questionnaire SHIV-7 Date SHIV - 7 assessed: 03/18/22 Source: Developed by Drs. Pedrito Mcwilliams, Annalee Servin, Damien Shah and colleagues, with an educational hunter from [employer]. Review of Systems Const Denies chills, Denies fatigue, Denies fever(s) and Denies headache(s) ENT Denies dysphagia, Denies dizziness, Denies otalgia, Denies headache(s), Denies neck pain, Denies odynophagia, Reports tinnitus (in the left ear) and Denies sore throat Card Denies chest pain, Denies palpitations and Denies dyspnea Resp Denies chest congestion, Denies cough and Denies dyspnea GI Denies abdominal pain, Denies constipation, Denies dysphagia, Denies heartburn, Denies diarrhea, Denies nausea, Denies odynophagia and Denies vomiting Denies difficulty voiding, Denies nocturia, Denies dysuria and Denies urinary urgency Musc Reports back pain (increased, over the lower back) and Denies neck pain Skin/Breast Denies rash Neuro Denies dizziness and Denies headache(s) Psych Reports anxiety and Reports depression Endo Denies fatigue and Denies palpitations Physical exam (Primary Care) Vital Signs: Last Vital Signs Pulse 76 01/09/24 15:17 BP 112/80 01/09/24 15:17 Pulse Ox 98 01/09/24 15:17 Oxygen Delivery Method Room Air 01/09/24 15:17 BMI result Body Mass Index 28.7 Tobacco/Smoking Status: Tobacco use Status Tobacco use date assessed 06/23/23 01/09/24 15:17 Patient Tobacco Use Status Never used Tobacco 01/09/24 15:17 e-Cigarette/Vaping Use Never Used 01/09/24 15:17 Thrive Assessment: Date of Thrive Assessment Date Thrive assessed 06/23/23 01/09/24 15:17 Const General: no acute distress and alert HENMT Ears: TM's normal bilaterally and EAC's normal Throat: Yes posterior oropharynx normal and Yes tonsils normal (no TP congestion) Neck Neck: Yes no lymphadenopathy and Yes supple Thyroid: Thyroid normal Resp Auscultation: clear to auscultation bilaterally, no rales and no wheezes Cardio Rate: regular rate Rhythm: regular rhythm Heart sounds: no murmurs GI Palpation (GI): Soft to palpation and nontender Auscultation: normal bowel sounds General: Yes no CVA tenderness Back/Spine/Pelvis Back: no CVA tenderness Thoracic/Lumbar Spine: lumbar spinal tenderness Skin Rashes: no rashes Extrem General: Yes no clubbing, cyanosis or edema Results AMB Hemoglobin A1c AMB Hemoglobin A1c 8.2 % Last Edit by LANDON Guillory on 01/09/24 15:44 Results Reviewed Results Reviewed: Laboratory Last Values Hgb A1c (Clinic) 8.2 % (4.0-6.0) H 01/09/24 15:30 Coding Level of Care Code Est Pt Level 4 (50737) Diagnoses Type 2 diabetes mellitus with hyperglycemia, with long-term current use of insulin E11.65; Z79.4 Diabetes mellitus type: type 2 Diabetes mellitus terminal system operator insulin use: with terminal system operator use Diabetes mellitus complication status: with hyperglycemia Acquired hypothyroidism E03.9 Pure hypercholesterolemia E78.00 Essential hypertension I10 Lumbar spondylosis M47.816 Osteopenia of spine M85.88 Osteopenia location: spine GERD without esophagitis K21.9 Anxiety F41.9 Episode of recurrent major depressive disorder, unspecified depression episode severity F33.9 Depression Type: major depressive disorder Major depression recurrence: recurrent Active/Remission status: currently active Major depression episode severity: unspecified Obesity (BMI 30-39.9) E66.9 Assessment & Plan Assessment & Plan (1) Diabetes mellitus: Code(s): E11.9 - Type 2 diabetes mellitus without complications Category: Medical Qualifiers: Diabetes mellitus type: type 2 Diabetes mellitus terminal system operator insulin use: with detention use Diabetes mellitus complication status: with hyperglycemia Qualified Code(s): E11.65 - Type 2 diabetes mellitus with hyperglycemia; Z79.4 - intermediate project manager (current) use of insulin Plan: Her in-office HgbA1c done today is at 8.2% (HgbA1c was at 7.7% back in August 2023) - goal is <7.0% Reinforced diabetic diet Continue Metformin 1000 mg BID, Lantus from 15 units SQ Q HS and Ozempic 0.25 mg SQ once a week (2) Acquired hypothyroidism: Code(s): E03.9 - Hypothyroidism, unspecified Category: Medical Plan: Her TSH level was significantly elevated (>11) on her labs done back in August 2023 We increased her Levothyroxine from 137 mcg to 150 mcg QD a few months ago - patient is instructed to get her follow up labs done AISHA (3) Pure hypercholesterolemia: Code(s): E78.00 - Pure hypercholesterolemia, unspecified Category: Medical Plan: Patient was not able to get her follow up labs done prior to her visit today - states that she will try to get these done AISHA Reinforced low cholesterol diet Continue Atorvastatin 80 mg QD Will recheck her labs and fasting lipids in 4 months for follow up (4) Essential hypertension: Code(s): I10 - Essential (primary) hypertension Category: Medical (5) Lumbar spondylosis: Code(s): M47.816 - Spondylosis without myelopathy or radiculopathy, lumbar region Category: Medical Plan: Reinforced activity and weight-lifting restrictions Her lumbar spine x-rays done a few months ago revealed (+) mild spondylosis of the lumbar spine She was referred to physical therapy, which she states helped somewhat (6) Osteopenia: Code(s): M85.80 - Other specified disorders of bone density and structure, unspecified site Category: Medical Qualifiers: Osteopenia location: spine Qualified Code(s): M85.88 - Other specified disorders of bone density and structure, other site Plan: Her baseline BMD done in August 2023 revealed (+) osteopenia based on the lowest T-score value of -1.7 in the femoral neck Continue oral Calcium + Vitamin D3 supplements daily Patient has also been advised to exercise regularly to help maintain her BMD Will recheck her BMD in 2 to 3 years for follow up (7) GERD without esophagitis: Code(s): K21.9 - Gastro-esophageal reflux disease without esophagitis Category: Medical Plan: Dietary restrictions reinforced Continue Omeprazole 20 mg QD (8) Anxiety: Code(s): F41.9 - Anxiety disorder, unspecified Category: Medical Plan: Continue Hydroxyzine 25 mg BID (9) Depression: Code(s): F32.A - Depression, unspecified Category: Medical Qualifiers: Depression Type: major depressive disorder Major depression recurrence: recurrent Active/Remission status: currently active Major depression episode severity: unspecified Qualified Code(s): F33.9 - Major depressive disorder, recurrent, unspecified Plan: Continue Bupropion SR 100 mg BID and Sertraline 100 mg QD Follow up with psychiatry as scheduled (10) Obesity (BMI 30-39.9): Code(s): E66.9 - Obesity, unspecified Category: Medical Plan: Reinforced diet/exercise as tolerated/lose weight Plan Follow up in 4 months Orders: Orders AMB Hemoglobin A1c 01/09/24 E11.65 - Type 2 diabetes mellitus with hyperglycemia, Z79.4 - intermediate project manager (current) use of insulin Thyroid Stimulating Hormone 4 Months E03.9 - Hypothyroidism, unspecified Comprehensive [place]. Panel Fast 4 Months E78.00 - Pure hypercholesterolemia, unspecified Free T4 (Free Thyroxine) 4 Months E03.9 - Hypothyroidism, unspecified Lipid Panel 4 Months E78.00 - Pure hypercholesterolemia, unspecified Hemoglobin A1c 4 Months E11.9 - Type 2 diabetes mellitus without complications Medications: Changed From omeprazole 20 mg PO DAILY 90 caps 2RF To omeprazole 20 mg PO DAILY 90 days 90 caps 1RF
== END 2024-01-09 15:59 | disposition home or self-care (01) ==
LOC: HO.HMCH 15:10
PROVIDERS: PCP Internal Medicine; Visit Provider Internal Medicine
DX: E11.65 Type 2 diabetes mellitus with hyperglycemia (principal); Z79.4 Long term (current) use of insulin; F33.9 Major depressive disorder, recurrent, unspecified; E03.9 Hypothyroidism, unspecified; E78.00 Pure hypercholesterolemia, unspecified; I10 Essential (primary) hypertension; M47.816 Spondylosis without myelopathy or radiculopathy, lumbar region; M85.88 Other specified disorders of bone density and structure, other site; K21.9 Gastro-esophageal reflux disease without esophagitis; F41.9 Anxiety disorder, unspecified; E66.9 Obesity, unspecified

== ENCOUNTER → 2024-01-09 15:09 | Outpatient (BNVA) | payer OTHER, SELFPAY | PROVIDERS: PCP Internal Medicine; Visit Provider Internal Medicine | DX: E11.65 Type 2 diabetes mellitus with hyperglycemia (principal); Z79.4 Long term (current) use of insulin; E03.9 Hypothyroidism, unspecified; E78.00 Pure hypercholesterolemia, unspecified; I10 Essential (primary) hypertension; M47.816 Spondylosis without myelopathy or radiculopathy, lumbar region; M85.88 Other specified disorders of bone density and structure, other site; K21.9 Gastro-esophageal reflux disease without esophagitis; F41.9 Anxiety disorder, unspecified; F33.9 Major depressive disorder, recurrent, unspecified | CPT/HCPCS: 83036; 99212 ==

== ENCOUNTER 2024-05-15 09:05 | Outpatient (AMB) | payer OTHER, SELFPAY ==
[2024-05-15 09:06] VITALS: BP 116/78; PULSE 109; O2SAT 99; BMI 28.5
--- NOTE | 2024-05-15 09:06 | MHC.PC.OV ---
Vital Signs 05/15/24 09:06 Height 5 ft 3 in Weight 161 lb 2 oz BMI 28.5 BP 116/78 Blood Pressure Location Lt brachial Position Sitting Pulse 109 H Pulse Source Pulse Oximeter Pulse Oximetry (%) 99 Oxygen Delivery Method Room Air Intake Visit Reasons: 4 month f/u Patient Transport Officer Required: No Accompanied by: Self / Same As Patient Allergies No Known Allergies Allergy (Verified 05/15/24 09:16) Medication List - Last Reconciled 05/15/24 by LESLY Guerrero atorvastatin 80 mg PO DAILY 90 days blood sugar diagnostic ([employer] Verio test strips) To test blood sugar 2 times a day As directed, 90 days blood-glucose meter ([employer] Ultra2 Meter kit) To test blood sugar 2 times a day As directed, 90 days bupropion HCl SR 100 mg PO BID calcium carbonate-vitamin D3 600 mg-25 mcg (1,000 unit) 1 cap PO DAILY 90 days hydroxyzine HCl 25 mg PO BID ibuprofen 800 mg PO Q6-8H insulin glargine (Lantus Solostar U-100 Insulin) 15 units (0.15 mL) subcut QPM 30 days lancets To test blood sugar 2 times a day As directed, 90 days levothyroxine 150 mcg PO DAILY 90 days lisinopril 5 mg PO DAILY 90 days metformin 1,000 mg PO BID 90 days omeprazole 20 mg PO DAILY 90 days semaglutide (Ozempic) 0.25 mg (0.368 mL) subcut QWEEK sertraline 100 mg PO DAILY Tobacco use date assessed: 05/15/24 Fall risk assessment: No Falls in past year Last assessed Fall Risk: 05/15/24 Dental Screening Dental Screen Date: 05/15/24 Did you have a dental visit in the last 12 months?: Yes Did you have a dental problem in the last 6 months where you did not have access to dental care?: No Was dental information given to patient?: Patient has dentist HPI 4 month f/u HPI Details reports that she has a psychiatrist, she is trying to find a therapist. She would like to be connected a therapist (she wants a female therapist), reports that she lost her upper teeth, she had bone disease, her teeth was falling out and they had to remove them and she was stressed out over this. The did not get her blood work done, will get them done after this appt. reports that she is going into join the gym, the patient a1c is 8.9 PFSH Medical History Overweight (BMI 25.0-29.9) Obesity (BMI 30-39.9) Depression Anxiety GERD without esophagitis Acquired hypothyroidism Pure hypercholesterolemia Diabetes mellitus Essential hypertension Vitamin D deficiency Type 2 diabetes mellitus with unspecified complications Asymmetric septal hypertrophy Surgical History History of tubal ligation History of surgery on arm H/O shoulder surgery Family History Mother Diabetes CVD (cardiovascular disease) HTN (hypertension) Brother No problems noted. Brother No problems noted. Brother No problems noted. Sister No problems noted. Sister No problems noted. Sister No problems noted. Daughter No problems noted. Daughter No problems noted. Daughter No problems noted. Daughter No problems noted. Daughter No problems noted. Maternal Aunt Cancer Social History Household Members: None Housing: Apartment Alcohol intake: never Patient Tobacco Use Status: Never used Tobacco e-Cigarette/Vaping Use: Never Used Second Hand Smoke Exposure: No service: No Current occupational status: unemployed Current occupational exposures/hazards: No Sexual orientation: Straight/Heterosexual Gender identity: Female Cognitive needs: No Hearing needs: No Vision needs: Yes Questionnaire PHQ-9 Over the last 2 weeks, how often have you been bothered by any of the following problems? 1. Little interest or pleasure in doing things: more than half the days 2. Feeling down, depressed, or hopeless: more than half the days 3. Trouble falling or staying asleep, or sleeping too much: nearly every day 4. Feeling tired or having little energy: nearly every day 5. Poor appetite or overeating: nearly every day 6. Feeling bad about yourself - or that you are a failure or have let yourself or your family down: several days 7. Trouble concentrating on things, such as reading the newspaper or watching television: more than half the days 8. Moving or speaking so slowly that other people could have noticed. Or the opposite - being so fidgety or restless that you have been moving around a lot more than usual: not at all 9. Thoughts that you would be better off or of hurting yourself in some way: not at all Total score: 16 Depression Screening Interpretation: Positive Depression Screening Follow-up: Existing condition and In treatment Depression Screening Done: Yes 48944 - PHQ-9 Billing: Yes ( The patient is under the care of psychiatrist Gretel Granados) Source: Developed by Drs. Pedrito Mcwilliams, Annalee Servin, Damien Shah and colleagues, with an educational hunter from [employer]. Thrive Questionnaire Date Thrive assessed: 05/15/24 I am a: Patient What is your living situation today?: I have a steady place to live Within the past 12 months, did the food you bought not last and you didn't have the money to get more?: Never true Within the past 12 months, did you worry whether your food would run out before you got money to buy more?: Never true Do you have trouble paying for medicines?: No Do you have trouble getting transportation to medical appointments?: No Do you have trouble paying your heating and electricity bill?: No Do you have trouble taking care of your child, family member or friend?: No Do you have trouble with day-to-day activities such as bathing, preparing meals, shopping, managing finances, etc.?: No Are you currently unemployed and looking for a job?: No Are you interested in more education?: No Please select the resources that you would like help with: None Currently or been in a relationship where the following occur: No concerns reported THRIVE Score: 0 AUDIT C Alcohol Use Questionnaire (AUDIT-C) 1. How often do you have a drink containing alcohol?: Never 3. How often do you have six or more drinks on one occasion?: Never Total Score: 0 Score Reviewed/Action Taken: Yes SHIV-7 AMB Questionnaire SHIV-7 Date SHIV - 7 assessed: 05/15/24 Feeling nervous, anxious, or on edge: 0 = Not at all Not being able to stop or control worryin = Not at all Worrying too much about different things: 0 = Not at all Trouble relaxin = Not at all Being so restless that it is hard to sit still: 0 = Not at all Becoming easily annoyed or irritable: 0 = Not at all Feeling afraid as if something awful might happen: 0 = Not at all Total SHIV-7 score (0-4 normal; 5-9 mild; 10-14 moderate; 15-21 severe): 0 Source: Developed by Drs. Pedrito Mcwilliams, Annalee Servin, Damien Shah and colleagues, with an educational hunter from [employer]. Physical exam (Primary Care) Vital Signs: Last Vital Signs Pulse 109 H 05/15/24 09:06 BP 116/78 05/15/24 09:06 Pulse Ox 99 05/15/24 09:06 Oxygen Delivery Method Room Air 05/15/24 09:06 BMI result Body Mass Index 28.5 Tobacco/Smoking Status: Tobacco use Status Tobacco use date assessed 05/15/24 05/15/24 09:13 Patient Tobacco Use Status Never used Tobacco 05/15/24 09:13 e-Cigarette/Vaping Use Never Used 05/15/24 09:13 PHQ-9: PHQ-9 Score PHQ-9: Total score 16 05/15/24 09:24 Depression Screening Interpretation: Positive Depression Screening Follow-up: Existing condition and In treatment Thrive Assessment: Date of Thrive Assessment Date Thrive assessed 05/15/24 05/15/24 09:13 Currently or been in a relationship where the following occur: No concerns reported Results AMB Hemoglobin A1c AMB Hemoglobin A1c 8.9 % Last Edit by LANDON Guillory on 05/15/24 09:27 Coding Diagnoses Hypothyroidism (acquired) E03.9 Additional Codes PHQ-9 - 08633 - PHQ-9 Billing: Yes ([id number]) Assessment & Plan Assessment & Plan (1) Hypothyroidism (acquired): Code(s): E03.9 - Hypothyroidism, unspecified Category: Medical Orders: Orders AMB Hemoglobin A1c Today E11.65 - Type 2 diabetes mellitus with hyperglycemia, Z79.4 - terminal block assembler (current) use of insulin Complete Blood Count Auto Diff 4 Months E03.9 - Hypothyroidism, unspecified, E55.9 - Vitamin D deficiency, unspecified, E66.9 - Obesity, unspecified, E78.00 - Pure hypercholesterolemia, unspecified, E78.5 - Hyperlipidemia, unspecified, I10 - Essential (primary) hypertension, K21.9 - Gastro-esophageal reflux disease without esophagitis UA CC w/rflx Micro + Cult 4 Months E03.9 - Hypothyroidism, unspecified, E55.9 - Vitamin D deficiency, unspecified, E66.9 - Obesity, unspecified, E78.00 - Pure hypercholesterolemia, unspecified, E78.5 - Hyperlipidemia, unspecified, I10 - Essential (primary) hypertension, K21.9 - Gastro-esophageal reflux disease without esophagitis TSH reflex Free T4 4 Months E03.9 - Hypothyroidism, unspecified, E55.9 - Vitamin D deficiency, unspecified, E66.9 - Obesity, unspecified, E78.00 - Pure hypercholesterolemia, unspecified, E78.5 - Hyperlipidemia, unspecified, I10 - Essential (primary) hypertension, K21.9 - Gastro-esophageal reflux disease without esophagitis Vitamin D 25-OH Total 4 Months E03.9 - Hypothyroidism, unspecified, E55.9 - Vitamin D deficiency, unspecified, E66.9 - Obesity, unspecified, E78.00 - Pure hypercholesterolemia, unspecified, E78.5 - Hyperlipidemia, unspecified, I10 - Essential (primary) hypertension, K21.9 - Gastro-esophageal reflux disease without esophagitis Glucose Fasting 4 Months E03.9 - Hypothyroidism, unspecified, E55.9 - Vitamin D deficiency, unspecified, E66.9 - Obesity, unspecified, E78.00 - Pure hypercholesterolemia, unspecified, E78.5 - Hyperlipidemia, unspecified, I10 - Essential (primary) hypertension, K21.9 - Gastro-esophageal reflux disease without esophagitis Hemoglobin A1c 4 Months E03.9 - Hypothyroidism, unspecified, E55.9 - Vitamin D deficiency, unspecified, E66.9 - Obesity, unspecified, E78.00 - Pure hypercholesterolemia, unspecified, E78.5 - Hyperlipidemia, unspecified, I10 - Essential (primary) hypertension, K21.9 - Gastro-esophageal reflux disease without esophagitis Comprehensive [place]. Panel Fast 4 Months E03.9 - Hypothyroidism, unspecified, E55.9 - Vitamin D deficiency, unspecified, E66.9 - Obesity, unspecified, E78.00 - Pure hypercholesterolemia, unspecified, E78.5 - Hyperlipidemia, unspecified, I10 - Essential (primary) hypertension, K21.9 - Gastro-esophageal reflux disease without esophagitis Lipid Panel 4 Months E03.9 - Hypothyroidism, unspecified, E55.9 - Vitamin D deficiency, unspecified, E66.9 - Obesity, unspecified, E78.00 - Pure hypercholesterolemia, unspecified, E78.5 - Hyperlipidemia, unspecified, I10 - Essential (primary) hypertension, K21.9 - Gastro-esophageal reflux disease without esophagitis Free T4 (Free Thyroxine) 4 Months E03.9 - Hypothyroidism, unspecified, E55.9 - Vitamin D deficiency, unspecified, E66.9 - Obesity, unspecified, E78.00 - Pure hypercholesterolemia, unspecified, E78.5 - Hyperlipidemia, unspecified, I10 - Essential (primary) hypertension, K21.9 - Gastro-esophageal reflux disease without esophagitis Medications: New semaglutide (Ozempic) 1 mg (0.75 mL) subcut QWEEK 3 mL 3RF E11.8 - Type 2 diabetes mellitus with unspecified complications Discontinued semaglutide (Ozempic) for 4 weeks; then increase to 0.5 mg every week Discontinued Reason: Duplicate 0.25 mg (0.368 mL) subcut QWEEK 3 mL 3RF
--- OUTSIDE RECORDS SUMMARY | 2024-05-15 09:59 | XMS_ITS | Data Portability ---
Author Organization [place] - [facility], Allergy Address [address] [place] [phone] Care Team Providers Care Electronics Detail Draftsperson Name Role Phone BAUTISTA, MAYCO Primary Care Provider [phone] Assessment Encounter Date Assessment Date Assessment LastModified by Organization Details LastModified Time 01/12/2024 01/12/2024 63-year-old female with a history of migraines, significant caffeine intake, presents today for intermittent tinnitus. She had audiometric testing today showing a mild notch at 3000 Hz bilaterally. I counseled her that the hearing loss is a risk factor for the tinnitus. I recommended masking and decreasing caffeine. I recommend repeat hearing test in a couple years. [email or web address] Not available 01/12/2024 15:01:32 Plan of Treatment Reminders Order Date Submit Date Provider Last Modified By Organization Details Last Modified Time Details Appointments None record ed. Lab None record ed. Referral None record ed. Procedures None record ed. Surgeries None record ed. Imaging None record ed. Medication Orders None record ed. Patient TargetsNo targets recorded. Patient InstructionsNo instructions recorded. Reason for Referral None Reported. Results Created Date Observation Date Name Description Value Unit Range Abnormal Flag Note LastModifiedBy Organization Detail LastModifiedTime 01/17/20 24 audio gram No observ ation record ed. BARCODE Not Available 2023 14:36:20 Result Notes None recorded. Problems Name Problem SNOMED Code Status Onset Date Resolution Date Notes Provider Name and Address Organization Details Recorded Time Sensorineural hearing loss of bilateral ears 671329897 Active 2023 PHUC MIRANDA [place], [facility] [address] [facility], [place], [phone], [facility] - [facility] [place] 14:41:36 Problem Notes None recorded. Procedures Surgical History Date Name Laterality Status Provider Name and Address Organization Details Recorded Time Comp Audio with Tymps (13409 & 41591) completed PHUC MIRANDA MA, [facility] [address] [facility],[place] [address], [place], [phone], [place] - [facility] 01/12/2024 14:41:20 procedure on shoulder completed KELSEY GOODWIN MD [address] [facility],[place] [address], [place], [phone], [facility] - [facility] 01/12/2024 14:59:28 Imaging Results Imaging Date Name Status LastModified by Organiz ation Details LastModified Time 01/17/2024 audiogram completed BARCODE Information no t available 01/17/2024 14:36:20 Procedure Notes None recorded. Medical Equipment None Reported. Allergies No known drug allergies Medications Name Sig Start Date Stop Date Status Note LastModified by Organization Details LastModified Time amoxicillin 500 mg capsule TAKE 1 CAPSULE BY MOUTH EVERY 8 HOURS UNTIL ALL TAKEN 01/11 completed Not Available Not Available Not Available levothyroxi ne 137 mcg tablet TAKE 1 TABLET BY MOUTH DAILY active Not Available Not Available No t Available atorvastati n 80 mg tablet TAKE 1 TABLET BY MOUTH DAILY active Not Available Not Available No t Available ibuprofen 800 mg tablet TAKE 1 TABLET BY MOUTH EVERY 8 HOURS NEEDED FOR PAIN active Not Available Not Available No t Available sertraline 100 mg tablet active Not Available Not Available Not Available metformin 1,000 mg tablet TAKE 1 TABLET BY MOUTH TWICE DAILY active Not Available Not Available No t Available levothyroxi ne 150 mcg tablet TAKE 1 TABLET BY MOUTH DAILY ON AN EMPTY STOMACH 01/11 completed Not Available Not Available Not Available omeprazole 20 mg capsule,del ayed release TAKE 1 CAPSULE BY MOUTH DAILY ON AN EMPTY STOMACH active Not Available Not Available No t Available hydroxyzine HCl 25 mg tablet TAKE 1 TABLET BY MOUTH TWICE DAILY NEEDED active Not Available Not Available No t Available lisinopril 5 mg tablet TAKE 1 TABLET BY MOUTH DAILY active Not Available Not Available No t Available diazepam 5 mg tablet TAKE 1 TABLET BY MOUTH 1 HOUR BEFORE DENTAL VISIT active Not Available Not Available No t Available Calcium 600 + D(3) 600 mg-5 mcg (200 unit) tablet TAKE 1 TABLET BY MOUTH DAILY active Not Available Not Available No t Available Lantus Solostar U-100 Insulin 100 unit/mL (3 mL) subcutaneou s pen INJECT 15 UNITS SUBCUTANE OUS DAILY IN THE EVENING active Not Available Not Available No t Available OneTouch Verio test strips TEST BLOOD GLUCOSE TWICE DAILY active Not Available Not Available No t Available Repatha SureClick 140 mg/mL subcutaneou s pen injector ADMINISTE R 1 ML UNDER THE SKIN EVERY 2 WEEKS 01/11 completed Not Available Not Available Not Available Ozempic 0.25 mg or 0.5 mg (2 mg/3 mL) subcutaneou s pen injector INJECT 0.25 MG SUBCUTANE OUS ONCE WEEKLY FOR 4 WEEKS. THEN INCREASE TO 0.5 MG ONCE WEEKLY active Not Available Not Available No t Available Vitals Date Recorded Body height Body mass index (BMI) Body weight Provider Name and Address Organization Details Last Updated DateTime 01/12/2024 160.02 cm 29.6 kg/m2 32709.93 g Emliee Barry [place] - [facility] 01/12/2024 14:49:03 Social History None recorded. Functional Status None recorded. Mental Status None recorded. Family History Nothing Reported Notes:no hearing loss Medical History Condition Response Migraines Y Diabetes Y Hyperlipidemia Y Hypertension Y Gynecological HistoryNo gynecological history recorded. Obstetrics History GPAL:G 0 P 0 0 0 0 Past Encounters Encounter ID Performer Location Encounter Start Date Encounter Closed Date Diagnosis/Indication Diagnosis SNOMED-CT Code Diagnosis ICD10 Code Diagnosis Note [id number] KELSEY GOODWIN MD [facility] [address] [phone] 01/12/2024 14:02:52 01/12/2024 15:02:11 Sensorineural hearing loss of bilateral ears 286520755 H90.3 Audiologic al evaluation results: Right ear: {{Normal N ormal through 2 kHz Mild M oderate Mo derately-s evere Estefania re Profoun d Normal hearing with#}} {{hearing sloping to a mild slopi ng to a moderate s loping to moderately severe slo ping to severe slo ping to profound f lat high frequency low frequency mid frequency cookie bite silverman curve a mild SNHL at 3 & 4 kHz#}} {{with* se nsorineura l hearing loss with condu ctive hearing loss with mixed hearing loss with}} {{excellen t* good fa ir poor no measurable }} word recognitio n. Left ear: {{Normal N ormal through 2 kHz Mild M oderate Mo derately-s evere Estefania re Profoun d Normal hearing with a #}} {{hearing sloping to a mild slopi ng to a moderate s loping to moderately severe slo ping to severe slo ping to profound f lat high frequency low frequency mid frequency cookie bite silverman curve mild SNHL at 3 & 4 kHz#}} {{with* se nsorineura l hearing loss with condu ctive hearing loss with mixed hearing loss with}} {{excellen t* good fa ir poor no measurable }} word recognitio n. Tympanomet ry: Right Ear:{{Type A* Type As Type Ad Type C Type C, shallow & rounded Ty pe B Type B with large volume Cou ld not maintain a hermetic seal}} Left Ear:{{Type A Type As Type Ad* Type C Type C, shallow & rounded Ty pe B Type B with large volume Cou ld not maintain a hermetic seal}} Health Concerns Section Related Observation LastModified by Organization Detai ls LastModified Time None Recorded Concern Status LastModified by Organization Details LastModified Time None Recorded Advance Directives Directive None Recorded Payers Encounter Date Sequence Insurance Name Policy Number Policy Sargent Covered Member ID Sargent Member ID Guarantor Name 01/12/2024 1 [facility] - DOS ON OR AFTER 2022 - [employer] (MEDICARE REPLACEMENT/ADV ANTAGE - HMO) Mami Cook [id number] Mami Cook Notes Date Note Type Note Provider Name and Address Organization Details Recorded Time 01/12/2024 text/html 63 yo F presents for tinnitus. Tinnitus comes and goes. Occasional dizziness like lightheaded. No spinning. History of migraines. No significant noise exposure. Has DM, last AIC >9. KELSEY GOODWIN MD [address] [place] [address], [phone], [facility] - [facility] 01/12/2024 15:02:16 OBGyn Episode No OBEpisode recorded.
== END 2024-05-15 09:42 | disposition home or self-care (01) ==
PROVIDERS: PCP Internal Medicine
DX: E11.65 Type 2 diabetes mellitus with hyperglycemia (principal); Z79.4 Long term (current) use of insulin

== ENCOUNTER 2024-05-15 09:05 | Outpatient (REF) | payer OTHER, SELFPAY ==
[2024-05-15 10:03] LABS: MANUAL DIFF FLAG NO
[2024-05-15 11:48] LABS: Basophils Percent Auto 0.5 % (0-2); Eosinophils Absolute Auto 0.1 X10*3/uL (0.0-0.4); Eosinophils Percent Auto 1.6 % (0-4); Hematocrit 38.3 % (37.0-47.0); Hemoglobin 12.2 g/dl (12.0-16.0); Imm Gran Abs Auto 0.01 X10*3/uL (0.00-0.03); Imm Gran Pct Auto 0.2 % (0.0-0.4); Lymphocytes Absolute Auto 2.3 X10*3/uL (1.2-4.9); Lymphocytes Percent Auto 35.4 % (20-40); Mean Corpuscular HGB Conc 31.9 g/dl (31.0-35.0); Mean Corpuscular Hemoglobin 26.6 pg (27.0-33.0); Mean Corpuscular Volume 83.6 fL (80.0-98.0); Mean Platelet Volume 12.3 fL (9.4-12.3); Monocytes Absolute Auto 0.5 X10*3/uL (0.1-1.2); Neutrophils Absolute Auto 3.6 x10*3/uL (2.0-8.3); Neutrophils Percent Auto 55.3 % (45-73); Platelet Count 210 X10*3/uL (160-400); Red Blood Count 4.58 X10*6/uL (4.20-5.50); Red Cell Distribution Width 14.6 % (11.0-16.0); White Blood Count 6.4 X10*3/uL (4.8-10.8)
[2024-05-15 11:54] LABS: Appearance Urine Clear; Color Urine Yellow; Glucose Urine UA Negative (Negative); Leukocyte Esterase Urine Negative (Negative); Nitrite Urine Negative (Negative); PH 5.5 (5.0-9.0); Urine Blood Negative (Negative); Urine Ketones Negative (Negative); Urine Protein Negative (Neg-Trace)
[2024-05-15 12:11] LABS: Estimated Average Glucose 209 mg/dL; Hemoglobin A1c % 8.9 % (<6.0)
[2024-05-15 12:50] LABS: Alanine Aminotransferase 68 U/L (0-31); Albumin Level 4.1 g/dL (3.5-5.0); Alkaline Phosphatase 80 U/L (39-117); Anion Gap 12 (12-20); Aspartate Amino Transferase 46 U/L (5-31); Bilirubin Total 0.3 mg/dL (0.0-1.0); Blood Urea Nitrogen 27 mg/dL (9-16); Calcium 10.3 mg/dL (8.4-10.2); Carbon Dioxide 24 mmol/L (22-29); Chloride 109 mmol/L (96-108); Cholesterol 168 mg/dL (<200); Estimated Glomerular Filt Rate 55; Free T4 (Free Thyroxine) 1.14 ng/dL (0.71-1.85); Glucose Fasting 140 mg/dL (60-99); HDL Cholesterol 51 mg/dL (>40); LDL Cholesterol Calculated 87 mg/dL (<100); Potassium 4.8 mmol/L (3.3-5.1); Sodium 140 mmol/L (135-145); Thyroid Stimulating Hormone 0.07 uIU/mL (0.32-4.0); Total Protein 7.4 g/dL (6.5-8.0); Triglycerides 152 mg/dL (<150)
== END 2024-05-15 09:06 | disposition home or self-care (01) ==
LOC: HO.LAB 09:05
PROVIDERS: PCP Internal Medicine
DX: E03.9 Hypothyroidism, unspecified (principal); F33.9 Major depressive disorder, recurrent, unspecified; F41.9 Anxiety disorder, unspecified; K21.9 Gastro-esophageal reflux disease without esophagitis; E78.00 Pure hypercholesterolemia, unspecified; E11.65 Type 2 diabetes mellitus with hyperglycemia; I10 Essential (primary) hypertension; E55.9 Vitamin D deficiency, unspecified; E66.9 Obesity, unspecified; Z79.4 Long term (current) use of insulin; Z79.899 Other long term (current) drug therapy; D64.9 Anemia, unspecified; R30.0 Dysuria
CPT/HCPCS: 36415; 80053; 80061; 81003; 83036; 84439; 84443; 85025; 96127; 99212

== ENCOUNTER 2024-10-31 09:38 | Outpatient (REF) | payer OTHER, SELFPAY ==
--- NOTE | ~2024-10-31 | MM_ITS ---
EXAMINATION: MM SCREENING DIGITAL BREAST TOMOSYNTHESIS, BILATERAL CLINICAL INFORMATION: Screening. Asymptomatic. COMPARISON: Mammography: Comparison is made with available priors TECHNIQUE: Digital breast mammography with tomosynthesis is performed in both the craniocaudal and mediolateral oblique views along with computer-aided detection (CAD). FINDINGS: There are scattered areas of fibroglandular density (ACR BI-RADS breast composition Category b). There are no significant masses, abnormal calcifications, or other abnormalities. MM/MM tomosynthesis screening BI IMPRESSION: No mammographic evidence of malignancy. ASSESSMENT: BI-RADS BI-RADS 1 - Negative RECOMMENDATION: Routine annual mammography screening. 1 year F/U This examination should not preclude the clinical evaluation of a suspicious palpable abnormality. This patient's information was entered into a reminder system with a target due date for their next mammogram. Electronically signed by: Celia Alex DO 11/04/2024 01:17 PM EDT
== END 2024-10-31 09:39 | disposition home or self-care (01) ==
LOC: HO.MAMMO 09:38
PROVIDERS: PCP Internal Medicine; Visit Provider Internal Medicine
DX: Z12.31 Encounter for screening mammogram for malignant neoplasm of breast (principal)
CPT/HCPCS: 77063; 77067

== ENCOUNTER → 2024-10-31 09:45 | Outpatient (BNV) | payer OTHER, SELFPAY | PROVIDERS: PCP Internal Medicine; Visit Provider Internal Medicine | DX: Z12.31 Encounter for screening mammogram for malignant neoplasm of breast (principal) | CPT/HCPCS: 77063; 77067 ==

== ENCOUNTER 2024-11-19 12:51 | Outpatient (REF) | payer OTHER, SELFPAY ==
[2024-11-19 13:07] LABS: MANUAL DIFF FLAG NO
[2024-11-19 14:45] LABS: Hematocrit 43.1 % (37.0-47.0); Hemoglobin 14.2 g/dl (12.0-16.0); Imm Gran Abs Auto 0.02 X10*3/uL (0.00-0.03); Imm Gran Pct Auto 0.3 % (0.0-0.4); Lymphocytes Absolute Auto 2.5 X10*3/uL (1.2-4.9); Mean Corpuscular HGB Conc 32.9 g/dl (31.0-35.0); Mean Corpuscular Hemoglobin 26.9 pg (27.0-33.0); Mean Corpuscular Volume 81.8 fL (80.0-98.0); NRBC Abs Auto 0.000 X10*3/uL (0.0-0.012); NRBC Pct Auto 0.0 /100WBC (0.0-0.2); Platelet Count 204 X10*3/uL (160-400); Red Blood Count 5.27 X10*6/uL (4.20-5.50); White Blood Count 7.5 X10*3/uL (4.8-10.8)
[2024-11-19 14:53] LABS: Total Hemoglobin (HGBA1C) 3580.0607 umol/L
[2024-11-19 15:22] LABS: Alanine Aminotransferase 97 U/L (0-31); Albumin Level 4.7 g/dL (3.5-5.0); Alkaline Phosphatase 101 U/L (39-117); Anion Gap 13 (12-20); Aspartate Amino Transferase 67 U/L (5-31); Blood Urea Nitrogen 18 mg/dL (9-16); Calcium 10.6 mg/dL (8.4-10.2); Carbon Dioxide 26 mmol/L (22-29); Chloride 104 mmol/L (96-108); Cholesterol 181 mg/dL (<200); Estimated Glomerular Filt Rate 49; HDL Cholesterol 47 mg/dL (>40); Potassium 4.8 mmol/L (3.3-5.1); Sodium 138 mmol/L (135-145); Total Protein 7.7 g/dL (6.5-8.0); Triglycerides 199 mg/dL (<150)
[2024-11-19 15:30] LABS: Appearance Urine Clear; Glucose Urine UA Negative (Negative); PH 6.0 (5.0-9.0); Specific Gravity - Urine <= 1.005 (1.005-1.025)
[2024-11-19 15:40] LABS: Free T4 (Free Thyroxine) 0.97 ng/dL (0.71-1.85)
== END 2024-11-19 12:52 | disposition home or self-care (01) ==
LOC: HO.LAB 12:51
PROVIDERS: PCP Internal Medicine
DX: E66.9 Obesity, unspecified (principal); K21.9 Gastro-esophageal reflux disease without esophagitis; E03.9 Hypothyroidism, unspecified; E78.00 Pure hypercholesterolemia, unspecified; I10 Essential (primary) hypertension; E55.9 Vitamin D deficiency, unspecified; E78.5 Hyperlipidemia, unspecified; F33.9 Major depressive disorder, recurrent, unspecified; F41.9 Anxiety disorder, unspecified; E11.65 Type 2 diabetes mellitus with hyperglycemia; E83.52 Hypercalcemia; Z79.4 Long term (current) use of insulin; Z79.84 Long term (current) use of oral hypoglycemic drugs; Z79.890 Hormone replacement therapy; Z79.899 Other long term (current) drug therapy; Z68.26 Body mass index [BMI] 26.0-26.9, adult
CPT/HCPCS: 36415; 80053; 80061; 81003; 82306; 83036; 84439; 84443; 85025; 99212

== ENCOUNTER 2024-11-19 13:27 | Outpatient (AMB) | payer OTHER, SELFPAY ==
--- NOTE | 2024-11-19 13:28 | A.OFFPC_ITS ---
Vital Signs 11/19/24 13:30 Height 5 ft 3 in Weight 151 lb 8 oz BMI 26.8 BP 100/68 Blood Pressure Location Rt brachial Position Sitting Respiration 18 Pulse 94 Pulse Source Pulse Oximeter Temp 97.1 F Temp Source Temporal Artery Scan Pulse Oximetry (%) 99 Oxygen Delivery Method Room Air Intake Visit Reasons: Reschedule DM/Hypothyroid-A1C needed Sewing Line Baler Required: No Accompanied by: Self / Same As Patient Allergies No Known Allergies Allergy (Verified 11/19/24 14:05) Medication List - Last Reconciled 11/19/24 by LESLY Guerrero atorvastatin 80 mg PO DAILY 90 days blood sugar diagnostic (DeNovaMeduch Ultra Test strips) As directed two times per day blood-glucose meter (DeNovaMeduch Ultra2 Meter kit) To test blood sugar 2 times a day As directed, 90 days bupropion HCl SR 100 mg PO BID hydroxyzine HCl 25 mg PO BID ibuprofen 800 mg PO Q6-8H insulin glargine (Lantus Solostar U-100 Insulin) 15 units (0.15 mL) subcut QPM 30 days lancets To test blood sugar 2 times a day As directed, 90 days levothyroxine 150 mcg PO DAILY 90 days lisinopril 5 mg PO DAILY 90 days metformin 1,000 mg PO BID 90 days omeprazole 20 mg PO DAILY 90 days sertraline 100 mg PO DAILY Tobacco use date assessed: 11/19/24 Fall risk assessment: No Falls in past year Last assessed Fall Risk: 11/19/24 Dental Screening Dental Screen Date: 11/19/24 Did you have a dental visit in the last 12 months?: Yes Did you have a dental problem in the last 6 months where you did not have access to dental care?: No Was dental information given to patient?: Patient has dentist HPI Reschedule DM/Hypothyroid-A1C needed HPI Details The patient is a 64-year-old female coming in for follow up appointment for chronic conditions Patient reports that she stopped taking that was empiric due to losing too much weight and getting weird feeling while on the medication Reports that she we will continue the Lantus 15 units daily and metformin a 1000 mg b.i.d. The patient also reports muscle aches all over and she is wondering if this is related to her age Explained to the patient that this could be related to are atorvastatin that she used for her cholesterol; however, given the importance of this medication, the recommendation isn't to stop this medication but to try and decrease the side effects Magnesium oxide 400 mg at bedtime was ordered. Explained to the patient that if her insurance does not cover this medication should also purchase this OTC Patient reports that she has been eating much better and staying active by gardening Denies chest pain, shortness of breath, heart palpitation or dizziness Denies abdominal pain or change in bowel habits Denies any urinary symptoms [facility] Medical History Hypothyroidism (acquired) Overweight (BMI 25.0-29.9) Obesity (BMI 30-39.9) Depression Anxiety GERD without esophagitis Acquired hypothyroidism Pure hypercholesterolemia Diabetes mellitus Essential hypertension Vitamin D deficiency Type 2 diabetes mellitus with unspecified complications Asymmetric septal hypertrophy Surgical History History of tubal ligation History of surgery on arm H/O shoulder surgery Family History Mother Diabetes CVD (cardiovascular disease) HTN (hypertension) Brother No problems noted. Brother No problems noted. Brother No problems noted. Sister No problems noted. Sister No problems noted. Sister No problems noted. Daughter No problems noted. Daughter No problems noted. Daughter No problems noted. Daughter No problems noted. Daughter No problems noted. Maternal Aunt Cancer Social History Household Members: None Housing: Apartment Alcohol intake: never Patient Tobacco Use Status: Never used Tobacco e-Cigarette/Vaping Use: Never Used Second Hand Smoke Exposure: No service: No Current occupational status: unemployed Current occupational exposures/hazards: No Sexual orientation: Straight/Heterosexual Gender identity: Female Cognitive needs: No Hearing needs: No Vision needs: Yes Questionnaire PHQ-9 Over the last 2 weeks, how often have you been bothered by any of the following problems? 1. Little interest or pleasure in doing things: more than half the days 2. Feeling down, depressed, or hopeless: more than half the days 3. Trouble falling or staying asleep, or sleeping too much: nearly every day 4. Feeling tired or having little energy: nearly every day 5. Poor appetite or overeating: nearly every day 6. Feeling bad about yourself - or that you are a failure or have let yourself or your family down: several days 7. Trouble concentrating on things, such as reading the newspaper or watching television: more than half the days 8. Moving or speaking so slowly that other people could have noticed. Or the op posite - being so fidgety or restless that you have been moving around a lot more than usual: not at all 9. Thoughts that you would be better off or of hurting yourself in some way: not at all Total score: 16 Depression Screening Interpretation: Positive Depression Screening Follow-up: Existing condition and In treatment Depression Screening Done: Yes Source: Developed by Drs. Pedrito Mcwilliams, Annalee Servin, Damien Shah and colleagues, with an educational hunter from [employer]. Thrive Questionnaire Date Thrive assessed: 11/19/24 I am a: Patient What is your living situation today?: I have a steady place to live Within the past 12 months, did the food you bought not last and you didn't have the money to get more?: Never true Within the past 12 months, did you worry whether your food would run out before you got money to buy more?: Never true Do you have trouble paying for medicines?: No Do you have trouble getting transportation to medical appointments?: No Do you have trouble paying your heating and electricity bill?: No Do you have trouble taking care of your child, family member or friend?: No Do you have trouble with day-to-day activities such as bathing, preparing meals, shopping, managing finances, etc.?: No Are you currently unemployed and looking for a job?: No Are you interested in more education?: No Please select the resources that you would like help with: None Currently or been in a relationship where the following occur: No concerns reported THRIVE Score: 0 AUDIT C Alcohol Use Questionnaire (AUDIT-C) 1. How often do you have a drink containing alcohol?: Never 3. How often do you have six or more drinks on one occasion?: Never Total Score: 0 SHIV-7 AMB Questionnaire SHIV-7 Date SHIV - 7 assessed: 11/19/24 Feeling nervous, anxious, or on edge: 0 = Not at all Not being able to stop or control worryin = Not at all Worrying too much about different things: 0 = Not at all Trouble relaxin = Not at all Being so restless that it is hard to sit still: 0 = Not at all Becoming easily annoyed or irritable: 0 = Not at all Feeling afraid as if something awful might happen: 0 = Not at all Total SHIV-7 score (0-4 normal; 5-9 mild; 10-14 moderate; 15-21 severe): 0 Source: Developed by Drs. Pedrito Mcwilliams, Annalee Servin, Damien Shah and colleagues, with an educational hunter from [employer]. Review of Systems Const Denies body aches, Denies chills, Denies fever(s), Denies headache(s) and Denies poor appetite Eyes Reports no additional complaints ENT Denies dysphagia, Denies dizziness, Denies headache(s) and Denies odynophagia Card Denies chest pain, Denies syncope, Denies edema, Denies irregular heart rhythm, Denies lightheadedness and Denies dyspnea Resp Denies cough and Denies dyspnea GI Denies abdominal pain, Denies constipation, Denies dysphagia, Denies diarrhea, Denies nausea, Denies odynophagia and Denies vomiting Reports no additional complaints Musc Reports myalgias and Reports muscle cramps (In extremities) Skin/Breast Reports system reviewed and no additional complaints, except as documented Neuro Denies dizziness, Denies syncope and Denies headache(s) Psych Reports anxiety (Improved significantly) and Reports depression (Improved significantly) Physical exam (Primary Care) Vital Signs: Last Vital Signs Temp 97.1 F 11/19/24 13:30 Pulse 94 11/19/24 13:30 Resp 18 11/19/24 13:30 BP 100/68 11/19/24 13:30 Pulse Ox 99 11/19/24 13:30 Oxygen Delivery Method Room Air 11/19/24 13:30 BMI result Body Mass Index 26.8 Tobacco/Smoking Status: Tobacco use Status Tobacco use date assessed 11/19/24 11/19/24 13:38 Patient Tobacco Use Status Never used Tobacco 11/19/24 13:28 e-Cigarette/Vaping Use Never Used 11/19/24 13:28 PHQ-9: PHQ-9 Score PHQ-9: Total score 16 11/19/24 14:32 Depression Screening Interpretation: Positive Depression Screening Follow-up: Existing condition and In treatment Thrive Assessment: Date of Thrive Assessment Date Thrive assessed 11/19/24 11/19/24 13:38 Currently or been in a relationship where the following occur: No concerns reported Const General: cooperative, healthy appearing, comfortable and no acute distress Orientation/consciousness: patient oriented x3 HENMT Head: Yes normocephalic Ears: hearing grossly normal bilaterally General nose exam: Normal external nose present Eyes General: appearance normal, both eyes and all related structures Conjunctivae: conjunctivae normal Neck Neck: Yes full ROM and Yes no lymphadenopathy Resp Effort & Inspection: normal respiratory effort Auscultation: clear to auscultation bilaterally, no crackles, no rales, no rhonchi and no wheezes Cardio Rate: regular rate Rhythm: regular rhythm Skin General skin exam: no rashes or lesions noted Neuro General: patient oriented x3 Gait exam (Neuro): Normal gait present Extrem General: Yes normal to inspection, Yes full ROM and No edema Psych Affect: normal affect Attitude: cooperative Insight: Good insight present (Psych) Judgement: Good judgement present (Psych) Results Reviewed Results Reviewed: Laboratory Tests 05/15/24 11/19/24 11/19/24 10:02 13:03 13:06 WBC 6.4 7.5 RBC 4.58 5.27 Hgb 12.2 14.2 Hct 38.3 43.1 MCV 83.6 81.8 MCH 26.6 L 26.9 L MCHC 32.9 RDW 14.1 Plt Count 210 204 MPV 12.7 H Sodium 140 138 Potassium 4.8 4.8 Chloride 109 H 104 Carbon Dioxide 26 Anion Gap 13 BUN 27 H 18 H Creatinine 1.12 Estimated GFR 49 Fasting Glucose 158 H Estimat Average Glucose 200 Hemoglobin A1c % 8.6 H Calcium 10.6 H Total Bilirubin 0.3 AST 67 H ALT 97 H Alkaline Phosphatase 101 Total Protein 7.7 Albumin 4.7 Triglycerides 199 H Cholesterol 181 LDL Cholesterol, Calc 95 HDL Cholesterol 47 25-OH Vitamin D Total 48.9 TSH 0.65 Free T4 0.97 Urine Color Yellow Urine Appearance Clear Urine pH 6.0 Ur Specific Hiller <= 1.005 Urine Protein Negative Urine Glucose (UA) Negative Urine Ketones Negative Urine Blood Negative Urine Nitrite Negative Ur Leukocyte Esterase Negative Coding Level of Care Code Est Pt Level 4 (28488) Diagnoses Hypothyroidism (acquired) E03.9 Episode of recurrent major depressive disorder, unspecified depression episode severity F33.9 Active/Remission status: currently active Depression Type: major depressive disorder Major depression episode severity: unspecified Major depression recurrence: recurrent Anxiety F41.9 GERD without esophagitis K21.9 Pure hypercholesterolemia E78.00 Type 2 diabetes mellitus with hyperglycemia, with long-term current use of insulin E11.65; Z79.4 Diabetes mellitus complication status: with hyperglycemia Diabetes mellitus snf insulin use: with snf use Diabetes mellitus type: type 2 Essential hypertension I10 Hypercalcemia E83.52 Muscle cramps R25.2 Time Spent (min) 39 Assessment & Plan Assessment & Plan (1) Hypothyroidism (acquired): Code(s): E03.9 - Hypothyroidism, unspecified Category: Medical Plan: TSH is 0.65 and free T4 is 0.97 Continue levothyroxine 150 mcg daily We will repeat TFTs in 4 months (2) Depression: Code(s): F32.A - Depression, unspecified Category: Medical Qualifiers: Active/Remission status: currently active Depression Type: major depressive disorder Major depression episode severity: unspecified Major depression recurrence: recurrent Qualified Code(s): F33.9 - Major depressive disorder, recurrent, unspecified Plan: Encouraged CBT Continue sertraline 100 mg, bupropion HCl SR 100 mg b.i.d. Denies SI/HI Follow up with Psychiatry as scheduled (3) Anxiety: Code(s): F41.9 - Anxiety disorder, unspecified Category: Medical Plan: Continue sertraline 100 mg daily Follow up with Psychiatry as scheduled (4) GERD without esophagitis: Code(s): K21.9 - Gastro-esophageal reflux disease without esophagitis Category: Medical Plan: Reinforced dietary restrictions. Refrain from eating close to bedtime Continue omeprazole 20 mg daily (5) Pure hypercholesterolemia: Code(s): E78.00 - Pure hypercholesterolemia, unspecified Category: Medical Plan: Triglycerides increased from 152 to 199. Her total cholesterol is 181, LDL was 95, HDL 47 Reinforced low-cholesterol diet and activity as tolerated Continue atorvastatin 80 mg daily Recheck lipid panel in 4 months (6) Diabetes mellitus: Code(s): E11.9 - Type 2 diabetes mellitus without complications Category: Medical Qualifiers: Diabetes mellitus complication status: with hyperglycemia Diabetes mellitus exterminator helper insulin use: with snf use Diabetes mellitus type: type 2 Qualified Code(s): E11.65 - Type 2 diabetes mellitus with hyperglycemia; Z79.4 - medical terminologist (current) use of insulin Plan: The patient A1c went from 8.9 to 8.6 %. The patient was taking Ozempic but stopped this medication due to side effects. The patient was on Lantus 15 units prior and this was discontinued to try Ozempic. We will restart the Lantus 15 units subQ daily. Encouraged the patient to decrease sugar/carbohydrate in her diet and increase activity as tolerated. We will rechecked fasting glucose and A1c in 4 months.s (7) Essential hypertension: Code(s): I10 - Essential (primary) hypertension Category: Medical Plan: Blood pressure is within normal limits Reinforced low-sodium diet Continue lisinopril 5 mg daily (8) Hypercalcemia: Code(s): E83.52 - Hypercalcemia Category: Medical Plan: Patient calcium is 10.6 this is noted to be slightly elevated 2022. During which the patient vitamin-D level was were low and needed vitamin-D supplement. The patient vitamin-D levels are within normal limits now. We will have the patient repeat calcium and add a PTH to further evaluate. (9) Muscle cramps: Code(s): R25.2 - Cramp and spasm Category: Medical Plan: Patient complains of muscle cramps. Explained to the patient that this might be related to her atorvastatin. We will have him try magnesium oxide 400 mg at bedtime. Maintain adequate hydration Orders: Orders Hemoglobin A1c 4 Months E03.9 - Hypothyroidism, unspecified, E11.9 - Type 2 diabetes mellitus without complications, E55.9 - Vitamin D deficiency, unspecified, E66.9 - Obesity, unspecified, E78.5 - Hyperlipidemia, unspecified, F41.8 - Other specified anxiety disorders, F41.9 - Anxiety disorder, unspecified, G47.30 - Sleep apnea, unspecified, I10 - Essential (primary) hypertension, R53.83 - Other fatigue Lipid Panel 4 Months E03.9 - Hypothyroidism, unspecified, E11.9 - Type 2 diabetes mellitus without complications, E55.9 - Vitamin D deficiency, unspecified, E66.9 - Obesity, unspecified, E78.5 - Hyperlipidemia, unspecified, F41.8 - Other specified anxiety disorders, F41.9 - Anxiety disorder, unspecif ied, G47.30 - Sleep apnea, unspecified, I10 - Essential (primary) hypertension, R53.83 - Other fatigue UA CC w/rflx Micro + Cult 4 Months E03.9 - Hypothyroidism, unspecified, E11.9 - Type 2 diabetes mellitus without complications, E55.9 - Vitamin D deficiency, unspecified, E66.9 - Obesity, unspecified, E78.5 - Hyperlipidemia, unspecified, F41.8 - Other specified anxiety disorders, F41.9 - Anxiety disorder, unspecified, G47.30 - Sleep apnea, unspecified, I10 - Essential (primary) hypertension, R53.83 - Other fatigue Complete Blood Count Auto Diff 4 Months E03.9 - Hypothyroidism, unspecified, E11.9 - Type 2 diabetes mellitus without complications, E55.9 - Vitamin D deficiency, unspecified, E66.9 - Obesity, unspecified, E78.5 - Hyperlipidemia, unspecified, F41.8 - Other specified anxiety disorders, F41.9 - Anxiety disorder, unspecified, G47.30 - Sleep apnea, unspecified, I10 - Essential (primary) hypertension, R53.83 - Other fatigue PTH Intact Intraoperative Today E83.52 - Hypercalcemia Calcium Today E83.52 - Hypercalcemia TSH reflex Free T4 4 Months E03.9 - Hypothyroidism, unspecified, E11.9 - Type 2 diabetes mellitus without complications, E55.9 - Vitamin D deficiency, unspecified, E66.9 - Obesity, unspecified, E78.5 - Hyperlipidemia, unspecified, F41.8 - Other specified anxiety disorders, F41.9 - Anxiety disorder, unspecified, G47.30 - Sleep apnea, unspecified, I10 - Essential (primary) hypertension, R53.83 - Other fatigue Comprehensive [place]. Panel Fast 4 Months E03.9 - Hypothyroidism, unspecified, E11.9 - Type 2 diabetes mellitus without complications, E55.9 - Vitamin D deficiency, unspecified, E66.9 - Obesity, unspecified, E78.5 - Hyperlipidemia, unspecified, F41.8 - Other specified anxiety disorders, F41.9 - Anxiety disorder, unspecified, G47.30 - Sleep apnea, unspecified, I10 - Essential (primary) hypertension, R53.83 - Other fatigue Vitamin D 25-OH Total 4 Months E03.9 - Hypothyroidism, unspecified, E11.9 - Type 2 diabetes mellitus without complications, E55.9 - Vitamin D deficiency, unspecified, E66.9 - Obesity, unspecified, E78.5 - Hyperlipidemia, unspecified, F41.8 - Other specified anxiety disorders, F41.9 - Anxiety disorder, unspecified, G47.30 - Sleep apnea, unspecified, I10 - Essential (primary) hypertension, R53.83 - Other fatigue Calcium, Ionized Today E83.52 - Hypercalcemia Medications: New magnesium oxide 400 mg PO BEDTIME 90 tabs 3RF Refilled insulin glargine (Lantus Solostar U-100 Insulin) 15 units (0.15 mL) subcut QPM 4.5 mL 3RF 30 days
[2024-11-19 13:30] VITALS: BP 100/68; PULSE 94; RESP 18; TEMP 36.2; O2SAT 99; BMI 26.8
== END 2024-11-19 14:24 | disposition home or self-care (01) ==
LOC: HO.HMCH 13:27
PROVIDERS: PCP Internal Medicine
DX: E11.65 Type 2 diabetes mellitus with hyperglycemia (principal); Z79.4 Long term (current) use of insulin; E03.9 Hypothyroidism, unspecified; F33.9 Major depressive disorder, recurrent, unspecified; F41.9 Anxiety disorder, unspecified; K21.9 Gastro-esophageal reflux disease without esophagitis; E78.00 Pure hypercholesterolemia, unspecified; I10 Essential (primary) hypertension; E83.52 Hypercalcemia; R25.2 Cramp and spasm